=== PATIENT | male | born 1935 | race Caucasian/White ===

== ENCOUNTER → 2020-09-29 12:01 | Outpatient (BNVA) | payer MEDICARE, OTHER, SELFPAY | PROVIDERS: PCP Internal Medicine; Visit Provider Internal Medicine | DX: Z76.89 Persons encountering health services in other specified circumstances (principal) ==

== ENCOUNTER → 2020-10-18 11:52 | Outpatient (BNVA) | payer MEDICARE, OTHER, SELFPAY | PROVIDERS: PCP Internal Medicine; Visit Provider Internal Medicine | DX: Z13.89 Encounter for screening for other disorder (principal) | CPT/HCPCS: Q3014 ==

== ENCOUNTER → 2020-10-25 15:54 | Outpatient (BNVA) | payer MEDICARE, OTHER, SELFPAY | PROVIDERS: PCP Internal Medicine; Visit Provider Internal Medicine | DX: Z76.89 Persons encountering health services in other specified circumstances (principal) ==

== ENCOUNTER → 2020-11-01 15:34 | Outpatient (BNVA) | payer MEDICARE, OTHER, SELFPAY | PROVIDERS: Visit Provider Internal Medicine | DX: I48.20 Chronic atrial fibrillation, unspecified (principal); Z51.81 Encounter for therapeutic drug level monitoring; Z79.01 Long term (current) use of anticoagulants | CPT/HCPCS: 99211 ==

== ENCOUNTER → 2020-11-15 11:32 | Outpatient (BNVA) | payer MEDICARE, OTHER, SELFPAY | PROVIDERS: PCP Internal Medicine; Visit Provider Urology | DX: N40.1 Benign prostatic hyperplasia with lower urinary tract symptoms (principal); R35.0 Frequency of micturition; R33.8 Other retention of urine; R35.1 Nocturia; Z79.899 Other long term (current) drug therapy | CPT/HCPCS: Q3014 ==

== ENCOUNTER → 2020-12-02 13:25 | Outpatient (BNVA) | payer MEDICARE, OTHER, SELFPAY | PROVIDERS: PCP Internal Medicine; Visit Provider Internal Medicine | DX: I48.20 Chronic atrial fibrillation, unspecified (principal); Z79.01 Long term (current) use of anticoagulants; Z51.81 Encounter for therapeutic drug level monitoring | CPT/HCPCS: 85610 ==

== ENCOUNTER → 2020-12-30 13:03 | Outpatient (BNVA) | payer MEDICARE, OTHER, SELFPAY | PROVIDERS: PCP Internal Medicine; Visit Provider Internal Medicine | DX: I48.20 Chronic atrial fibrillation, unspecified (principal); Z51.81 Encounter for therapeutic drug level monitoring; Z79.01 Long term (current) use of anticoagulants | CPT/HCPCS: 85610; 99211 ==

== ENCOUNTER → 2021-01-27 12:15 | Outpatient (BNVA) | payer MEDICARE, OTHER, SELFPAY | PROVIDERS: PCP Internal Medicine; Visit Provider Internal Medicine | DX: I48.20 Chronic atrial fibrillation, unspecified (principal); Z51.81 Encounter for therapeutic drug level monitoring; Z79.01 Long term (current) use of anticoagulants | CPT/HCPCS: 85610; 99211 ==

== ENCOUNTER → 2021-02-17 13:05 | Outpatient (BNVA) | payer MEDICARE, OTHER, SELFPAY | PROVIDERS: PCP Internal Medicine; Visit Provider Internal Medicine | DX: I48.20 Chronic atrial fibrillation, unspecified (principal); Z51.81 Encounter for therapeutic drug level monitoring; Z79.01 Long term (current) use of anticoagulants | CPT/HCPCS: 85610; 99211 ==

== ENCOUNTER → 2021-03-17 13:06 | Outpatient (BNVA) | payer MEDICARE, OTHER, SELFPAY | PROVIDERS: PCP Internal Medicine; Visit Provider Internal Medicine | DX: I48.20 Chronic atrial fibrillation, unspecified (principal); Z51.81 Encounter for therapeutic drug level monitoring; Z79.01 Long term (current) use of anticoagulants | CPT/HCPCS: 85610; 99211 ==

== ENCOUNTER → 2021-04-07 10:28 | Outpatient (REF) | payer MEDICARE, OTHER, SELFPAY ==
--- NOTE | 2021-04-07 10:35 | CA_ITS ---
Transthoracic Echocardiogram Patient (Last, First, Middle): Tushar Tiwari F Gender: Male Date of : 1935 Age: 86 Procedure Date: 04/07/2021 Procedure Type: Transthoracic Echocardiogram Location: OP Height: 193.04 cm Weight: 95.26 kg BSA: 2.26 m2 Heart Rate: bpm BP: 130 / 70 mmHg Thaw Shed Heater Tender: FANNY Martell MD: Adrian Hobbs MD Information Technology Administrator: Larry Lebron MD Symptoms: I35.0 - Nonrheumatic aortic (valve) stenosis Study Quality: Fair ECG Rhythm: Sinus Conclusions: - 1. Normal LV systolic function with LVEF of 55-60% with restrictive filling 2. Severely dilated left atrium 3. Severe aortic stenosis with mean gradient of 41 mm Hg 4. At least moderate mitral regurgitation 5. Moderately elevated right ventricular systolic pressure 6. No pericardial effusion Findings Left Ventricle Normal left ventricular size, thickness, and systolic function. The visually estimated ejection fraction is between 55-60%. Spectral Doppler is indicative of a restrictive filling pattern. Elevated left ventricular end diastolic pressure. Right Ventricle Mildly increased right ventricular cavity size. There is normal right ventricular systolic function. There is a pacemaker wire seen in the right ventricle. Atria The left atrium is severely dilated. There is no evidence of interatrial shunt. The right atrium is moderately dilated. Aortic Valve There is severe calcification of the aortic valve. There is severe thickening of the aortic valve with reduced excursion. There is severe aortic valve stenosis. The peak aortic gradient is 74 mmHg.The mean gradient is 41 mmHg. The aortic valve area is 0.86 cm2. There is no aortic valve regurgitation. Mitral Valve There is mild anterior and severe posterior mitral leaflet thickening. There is severe mitral annular calcification. There is moderate mitral valve regurgitation. There is no mitral valve stenosis. Pulmonic Valve The pulmonic valve was not well visualized. Tricuspid Valve Likely normal tricuspid valve structure and function. There is mild tricuspid valve regurgitation. Mildly elevated right atrial pressure. Moderate pulmonary hypertension is present. Great Vessels All visible segments of the aorta are normal in size. The pulmonary artery was not well visualized. Venous The inferior vena cava is mildly dilated and collapses less than 50% with inspiration. Pericardium/Pleural There is no evidence of pericardial effusion. Prior Study Comparison Changes noted compared to prior study dated: 05/25/2020. Aortic stenosis is severe. RV systolic pressure is increased Measurements 2D Linear Measurements IVSd: 1.14 0.6-0.9/0.6-1.0 cm LVIDd: 5.74 3.9-5.3/4.2-5.9 cm LVIDd Index: 2.54 2.4-3.2/2.2-3.1 cm/m2 LVIDs: 4.64 2.0-3.6 cm LVPWd: 0.93 0.7-1.1 cm Ao Root: 3.50 2.1-3.5 cm LA Diam: 5.70 2.7-3.8/3.0-4.0 cm LAIDs Index: 2.52 1.5-2.3 cm/m2 LV Mass: 426.36 67-162/88-224 g LV Mass Index: 188.65 43-95/49-115 g/m2 LVOT Diam: 2.20 3.0+(-)1.3 cm 2D Systolic Function EF 4C: 63.30 >55% EF 2C: 56.30 >55% EF BiP: 59.30 >55% Aortic Valve AoV Pk Ajith: 4.31 AoV Mn Ajith: 3.06 AoV VTI: 1.11 AoV Pk Grad: 74.00 Aov Mn Grad: 41.00 DILSHAD Cont.VTI: 0.86 AI Pk Ajith: 3.12 AI [place]: 2.14 LVOT LVOT Pk Ajith: 0.94 LVOT Mn Ajith: 0.59 LVOT VTI: 0.25 LVOT Pk Grad: 4.00 LVOT Mn Grad: 2.00 LVOT Diam: 2.20 LVOT Area: 3.80 Tricuspid Valve TR Pk Ajith: 3.22 TR Pk Grad: 41.00 RA Press: 8.00 RVSP: 49.00 Great Vessels Aorta Ao Root-2D: 3.50 2.0-3.7 cm Ao Asc: 3.50 2.1-3.4 cm Updated in Other Vendor System with Status of Final Larry Lebron MD electronically signed on 04/08/2021 12:11:05 PM with status of Final
== END ==
LOC: HO.CARD 10:28
PROVIDERS: Visit Provider Internal Medicine
DX: I35.0 Nonrheumatic aortic (valve) stenosis (principal)
CPT/HCPCS: 93306

== ENCOUNTER → 2021-04-14 12:59 | Outpatient (BNVA) | payer MEDICARE, OTHER, SELFPAY | PROVIDERS: PCP Internal Medicine; Visit Provider Internal Medicine | DX: I48.20 Chronic atrial fibrillation, unspecified (principal); Z51.81 Encounter for therapeutic drug level monitoring; Z79.01 Long term (current) use of anticoagulants | CPT/HCPCS: 85610; 99211 ==

== ENCOUNTER 2021-05-02 08:45 | Outpatient (REF) | payer MEDICARE, OTHER, SELFPAY ==
[2021-05-02 10:45] LABS: MANUAL DIFF FLAG NO
[2021-05-02 10:55] LABS: Basophils Percent Auto 0.6 % (0-2); Eosinophils Absolute Auto 0.1 X10*3/uL (0.0-0.4); Eosinophils Percent Auto 2.1 % (0-4); Hematocrit 37.1 % (42-52); Hemoglobin 11.7 g/dl (14.0-18.0); Imm Gran Abs Auto 0.02 X10*3/uL (0.00-0.03); Imm Gran Pct Auto 0.4 % (0.0-0.4); Immature Retic Fraction 6.8 % (2.3-13.4); Lymphocytes Absolute Auto 0.8 X10*3/uL (1.2-4.9); Lymphocytes Percent Auto 16.6 % (20-40); Mean Corpuscular HGB Conc 31.5 g/dl (31.0-36.0); Mean Corpuscular Hemoglobin 31.8 pg (27.0-33.0); Mean Corpuscular Volume 100.8 fL (80-98); Mean Platelet Volume 11.3 fL (9.4-12.4); Monocytes Absolute Auto 0.5 X10*3/uL (0.1-1.2); Monocytes Percent Auto 9.4 % (2-11); Neutrophils Absolute Auto 3.5 X10*3/uL (2.0-8.3); Neutrophils Percent Auto 70.9 % (45-73); Platelet Count 151 X10*3/uL (160-400); Red Blood Count 3.68 X10*6/uL (4.60-5.80); Red Cell Distribution Width 13.1 % (11.0-16.0); Retic HGB Equivalent 34.8 pg (30.0-35.0); Reticulocyte Percent 1.1 % (0.5-1.8); Reticulocytes Absolute 0.042 X10*6/uL (0.026-0.095); White Blood Count 4.9 X10*3/uL (4.8-10.8)
[2021-05-02 11:03] LABS: Estimated Average Glucose 91 mg/dL; Hemoglobin A1c % 4.8 %
[2021-05-02 11:25] LABS: Alanine Aminotransferase 25 U/L (0-40); Albumin Level 3.4 g/dL (3.5-5.0); Alkaline Phosphatase 105 U/L (39-117); Anion Gap 11 (12-20); Aspartate Amino Transferase 29 U/L (5-37); Bilirubin Total 0.9 mg/dL (0.0-1.0); Blood Urea Nitrogen 20 mg/dL (9-16); Calcium 8.7 mg/dL (8.4-10.2); Carbon Dioxide 27 mmol/L (22-29); Chloride 107 mmol/L (96-108); Cholesterol 108 mg/dL; Estimated Glomerular Filt Rate > 60; Glucose Random 89 mg/dL (60-115); HDL Cholesterol 40 mg/dL; Iron 87 mcg/dL (45-160); LDL Cholesterol Calculated 54 mg/dl; Percent Iron Saturation 43 % (15-50); Potassium 4.1 mmol/L (3.3-5.1); Sodium 141 mmol/L (135-145); Total Iron Binding Capacity 201 mcg/dL (228-428); Total Protein 6.1 g/dL (6.5-8.0); Triglycerides 72 mg/dL; Unsaturated Iron Binding 114 ug/dL
[2021-05-02 11:34] LABS: Ferritin 482 ng/mL (20-250); Free T4 (Free Thyroxine) 1.37 ng/dL (0.71-1.85); Thyroid Stimulating Hormone 0.02 uIU/mL (0.32-4.0)
[2021-05-02 11:56] LABS: Folate 10.1 ng/mL (> or = 4.0); Vitamin B12 887 pg/mL (200-900)
== END 2021-05-02 08:46 | disposition home or self-care (01) ==
LOC: HO.LAB 08:45
PROVIDERS: PCP Internal Medicine; Visit Provider Internal Medicine
DX: R73.01 Impaired fasting glucose (principal); E03.9 Hypothyroidism, unspecified; I48.20 Chronic atrial fibrillation, unspecified; E78.00 Pure hypercholesterolemia, unspecified
CPT/HCPCS: 36415; 80053; 80061; 82607; 82728; 82746; 83036; 83540; 84439; 84443; 85025; 85045

== ENCOUNTER → 2021-05-12 13:01 | Outpatient (BNVA) | payer MEDICARE, OTHER, SELFPAY | PROVIDERS: PCP Internal Medicine; Visit Provider Internal Medicine | DX: I48.20 Chronic atrial fibrillation, unspecified (principal); Z51.81 Encounter for therapeutic drug level monitoring; Z79.01 Long term (current) use of anticoagulants | CPT/HCPCS: 85610; 99211 ==

== ENCOUNTER → 2021-05-16 12:41 | Outpatient (BNVA) | payer MEDICARE, OTHER, SELFPAY | PROVIDERS: PCP Internal Medicine; Referring Provider Internal Medicine; Visit Provider Internal Medicine | DX: I48.19 Other persistent atrial fibrillation (principal); I35.0 Nonrheumatic aortic (valve) stenosis; I27.20 Pulmonary hypertension, unspecified; I10 Essential (primary) hypertension; Z95.0 Presence of cardiac pacemaker | CPT/HCPCS: 93005; 99212 ==

== ENCOUNTER → 2021-06-09 13:04 | Outpatient (BNVA) | payer MEDICARE, OTHER, SELFPAY | PROVIDERS: PCP Internal Medicine; Visit Provider Internal Medicine | DX: I48.20 Chronic atrial fibrillation, unspecified (principal); Z51.81 Encounter for therapeutic drug level monitoring; Z79.01 Long term (current) use of anticoagulants | CPT/HCPCS: 85610; 99211 ==

== ENCOUNTER → 2021-07-12 13:54 | Outpatient (BNVA) | payer MEDICARE, OTHER, SELFPAY | PROVIDERS: PCP Internal Medicine; Visit Provider Internal Medicine | DX: I48.20 Chronic atrial fibrillation, unspecified (principal); Z51.81 Encounter for therapeutic drug level monitoring; Z79.01 Long term (current) use of anticoagulants | CPT/HCPCS: 85610; 99211 ==

== ENCOUNTER → 2021-08-09 11:22 | Outpatient (BNVA) | payer MEDICARE, OTHER, SELFPAY | PROVIDERS: PCP Internal Medicine; Visit Provider Internal Medicine | DX: I48.20 Chronic atrial fibrillation, unspecified (principal); Z51.81 Encounter for therapeutic drug level monitoring; Z79.01 Long term (current) use of anticoagulants | CPT/HCPCS: 85610; 99211 ==

== ENCOUNTER → 2021-09-06 11:25 | Outpatient (BNVA) | payer MEDICARE, OTHER, SELFPAY | PROVIDERS: PCP Internal Medicine; Visit Provider Internal Medicine | DX: I48.20 Chronic atrial fibrillation, unspecified (principal); Z51.81 Encounter for therapeutic drug level monitoring; Z79.01 Long term (current) use of anticoagulants | CPT/HCPCS: 85610; 99211 ==

== ENCOUNTER → 2021-09-08 13:00 | Outpatient (REF) | payer MEDICARE, OTHER, SELFPAY ==
--- NOTE | 2021-09-08 13:04 | CA_ITS ---
Transthoracic Echocardiogram Patient (Last, First, Middle): Tushar Tiwari F Gender: Male Date of : 1935 Age: 86 Procedure Date: 09/08/2021 Procedure Type: Transthoracic Echocardiogram Location: OP Height: 193.04 cm Weight: 93.44 kg BSA: 2.24 m2 Heart Rate: bpm BP: 130 / 70 mmHg Bran Mixer: DSG Referring MD: Adrian Hobbs MD Symptoms: I35.0 - Nonrheumatic aortic (valve) stenosis Study Quality: Fair ECG Rhythm: Ventriculary paced rhythm Conclusions: - The left ventricular systolic function is normal. The calculated ejection fraction is 63% by biplane method. - There is severe aortic valve stenosis. - There is moderate mitral annular calcification. There is mild mitral valve regurgitation. - Mild pulmonary hypertension is present. Findings Left Ventricle Moderately increased left ventricular cavity size. There is mildly increased left ventricular wall thickness. The left ventricular systolic function is normal. The calculated ejection fraction is 63% by biplane method. There is no evidence of regional wall motion abnormalities. Evidence suggests grade III (severe) diastolic dysfunction. LV peak GLS -12.5%. Right Ventricle Normal right ventricular cavity size and systolic function. There is a pacemaker wire seen in the right ventricle. Atria The left atrium is severely dilated. The right atrium is moderately dilated. Aortic Valve There is severe calcification of the aortic valve. There is severe aortic valve stenosis. The peak aortic velocity is 4.58 m/s with a calculated peak gradient of 84 mmHg. The mean gradient is 49 mmHg. The aortic valve area is 0.75 cm2. There is mild aortic valve regurgitation. Mitral Valve There is moderate mitral annular calcification. There is mild mitral valve regurgitation. There is no mitral valve stenosis. Pulmonic Valve The pulmonic valve was not well visualized. There is trace pulmonic valve regurgitation. Tricuspid Valve There is mild tricuspid valve regurgitation. The right ventricular systolic pressure is 40 mmHg. The pulmonary artery systolic pressure is normal. Mild pulmonary hypertension is present. Great Vessels The asc aorta is normal in size. Venous The inferior vena cava was not well visualized. Pericardium/Pleural There is no evidence of pericardial effusion. Prior Study Comparison Changes noted compared to prior study dated: 04/07/2021. Progression of aortic valve stenosis. Measurements 2D Linear Measurements IVSd: 1.17 0.6-0.9/0.6-1.0 cm LVIDd: 6.34 3.9-5.3/4.2-5.9 cm LVIDd Index: 2.83 2.4-3.2/2.2-3.1 cm/m2 LVIDs: 4.24 2.0-3.6 cm LVPWd: 1.05 0.7-1.1 cm LA Diam: 5.30 2.7-3.8/3.0-4.0 cm LAIDs Index: 2.37 1.5-2.3 cm/m2 LV Mass: 387.28 67-162/88-224 g LV Mass Index: 172.89 43-95/49-115 g/m2 LVOT Diam: 2.20 3.0+(-)1.3 cm 2D Systolic Function EF 4C: 61.70 >55% EF 2C: 62.60 >55% EF BiP: 62.80 >55% Mitral Valve MV Pk E: 1.53 MV PK A: 0.74 MV Decel Time: 305.00 E/A: 2.10 E'Lateral: 12.30 E'Medial: 6.31 E/E' Med: 24.20 E/E' Lat: 12.40 PHT: 89.00 MVA PHT: 2.47 Decel [place]: 5.02 Aortic Valve AoV Pk Ajith: 4.58 AoV Mn Ajith: 3.28 AoV VTI: 1.15 AoV Pk Grad: 84.00 Aov Mn Grad: 49.00 DILSHAD Cont.VTI: 0.75 AI Pk Ajith: 2.96 AI [place]: 1.56 LVOT LVOT Pk Ajith: 1.02 LVOT Mn Ajith: 0.67 LVOT VTI: 0.23 LVOT Pk Grad: 4.00 LVOT Mn Grad: 2.00 LVOT Diam: 2.20 LVOT Area: 3.80 Diastolic Function MV Pk E: 1.53 MV Pk A: 0.74 E/A: 2.10 E'Medial: 6.31 E/E' Med: 24.20 E' Laterial: 12.30 E/E' Lat: 12.40 Right Ventricle TAPSE (mm): 2.14 Tricuspid Valve TR Pk Ajith: 2.95 TR Pk Grad: 35.00 RVSP: 40.00 Great Vessels Aorta Ao Asc: 3.70 2.1-3.4 cm Updated in Other Vendor System with Status of Final Adrian Hobbs MD electronically signed on 09/09/2021 10:44:27 AM with status of Final
== END ==
LOC: HO.CARD 13:00
PROVIDERS: PCP Internal Medicine; Visit Provider Internal Medicine
DX: I35.0 Nonrheumatic aortic (valve) stenosis (principal)
CPT/HCPCS: 93306; 93356

== ENCOUNTER → 2021-09-26 12:59 | Outpatient (BNVA) | payer MEDICARE, OTHER, SELFPAY | PROVIDERS: PCP Internal Medicine; Referring Provider Internal Medicine; Visit Provider Internal Medicine | DX: I48.19 Other persistent atrial fibrillation (principal); I35.0 Nonrheumatic aortic (valve) stenosis; I27.20 Pulmonary hypertension, unspecified; I10 Essential (primary) hypertension; Z95.0 Presence of cardiac pacemaker | CPT/HCPCS: 99212 ==

== ENCOUNTER 2021-10-04 12:48 | Outpatient (REF) | payer MEDICARE, OTHER, SELFPAY ==
[2021-10-04 13:32] LABS: MANUAL DIFF FLAG NO
[2021-10-04 13:39] LABS: Basophils Percent Auto 0.5 % (0-2); Eosinophils Absolute Auto 0.1 X10*3/uL (0.0-0.4); Eosinophils Percent Auto 1.7 % (0-4); Hematocrit 37.1 % (42.0-52.0); Hemoglobin 11.7 g/dl (14.0-18.0); Imm Gran Abs Auto 0.02 X10*3/uL (0.00-0.03); Imm Gran Pct Auto 0.3 % (0.0-0.4); Immature Retic Fraction 5.5 % (2.3-13.4); Lymphocytes Absolute Auto 1.2 X10*3/uL (1.2-4.9); Lymphocytes Percent Auto 19.2 % (20-40); Mean Corpuscular HGB Conc 31.5 g/dl (31.0-36.0); Mean Corpuscular Hemoglobin 32.2 pg (27.0-33.0); Mean Corpuscular Volume 102.2 fL (80.0-98.0); Mean Platelet Volume 10.6 fL (9.4-12.4); Monocytes Absolute Auto 0.7 X10*3/uL (0.1-1.2); Monocytes Percent Auto 10.9 % (2-11); Neutrophils Absolute Auto 4.3 x10*3/uL (2.0-8.3); Neutrophils Percent Auto 67.4 % (45-73); Platelet Count 190 X10*3/uL (160-400); Red Blood Count 3.63 X10*6/uL (4.60-5.80); Red Cell Distribution Width 13.2 % (11.0-16.0); Reticulocyte Percent 1.4 % (0.5-1.8); White Blood Count 6.4 X10*3/uL (4.8-10.8)
[2021-10-04 14:03] LABS: Iron 96 mcg/dL (45-160); Percent Iron Saturation 44 % (15-50); Total Iron Binding Capacity 216 mcg/dL (228-428); Unsaturated Iron Binding 120 ug/dL
[2021-10-04 14:24] LABS: Ferritin 405 ng/mL (20-250); Free T4 (Free Thyroxine) 1.55 ng/dL (0.71-1.85); Thyroid Stimulating Hormone 0.11 uIU/mL (0.32-4.0)
== END 2021-10-04 12:49 | disposition home or self-care (01) ==
LOC: HO.LAB 12:48
PROVIDERS: Visit Provider Internal Medicine
DX: D64.9 Anemia, unspecified (principal); E03.9 Hypothyroidism, unspecified
CPT/HCPCS: 36415; 82728; 83540; 84439; 84443; 85025; 85045; 85610

== ENCOUNTER 2021-10-16 01:28 | Emergency (ER) | payer MEDICARE, OTHER, SELFPAY ==
[2021-10-16 01:36] VITALS: BP 111/67; BP 130/72; PULSE 60; PULSE 70; RESP 18; TEMP 36.4; O2SAT 96; O2SAT 98; BMI 25.2
--- NOTE | 2021-10-16 01:42 | ED_ITS ---
History of Present Illness General Chief Complaint: Epistaxis Stated Complaint: epistaxis(on warfarin) Time Seen by Provider: 10/16/21 02:09 Source: patient and EMS Mode of arrival: EMS Limitations: no limitations History of Present Illness HPI Narrative: 86-year-old male presents via EMS for a nose bleed. States that he was scratching at his nose, it started bleeding states that he has been bleeding for about an hour. He is taking warfarin. Location: Yes left naris Onset/current episode: Yes hour(s) (1) Duration: Yes constant Context: Yes digital trauma Treatment prior to arrival: Yes stuff nose with tissue Related Data Home Medications Medication Instructions Recorded Confirmed cholecalciferol (vitamin D3) 25 25 mcg PO DAILY 09/27/20 09/26/21 mcg (1,000 unit) tablet lisinopril 20 mg tablet 20 mg PO DAILY 09/27/20 09/26/21 metoprolol succinate 50 mg 50 mg PO DAILY 09/27/20 09/26/21 tablet,extended release 24 hr simvastatin 20 mg tablet 20 mg PO DAILY 09/27/20 09/26/21 levothyroxine 200 mcg tablet 200 mcg PO .COMPLEX 05/02/21 09/26/21 Previous Rx's Medication Instructions Recorded albuterol sulfate 90 mcg/actuation 2 puff PO Q4H PRN #8.5 g 09/27/20 aerosol inhaler warfarin 4 mg tablet 4 mg PO .COMPLEX #90 tab 12/19/20 terazosin 10 mg capsule 10 mg PO DAILY 90 Days #90 cap 05/19/21 levothyroxine 175 mcg capsule 175 mcg PO DAILY 30 Days #30 cap 10/04/21 Allergies Allergy/AdvReac Type Severity Reaction Status Date / Time No Known Allergies Allergy Verified 10/16/21 01:41 Review of Systems Review of Systems: Constitutional: No Fever, No Chills ENT/Mouth: Positive epistaxis,No Ear Pain, No Hoarseness, No sore throat Eyes: No Eye Pain, No Swelling, No Redness, No Foreign Body Cardiovascular: No Chest Pain, No SOB Respiratory: No Cough, No Dyspnea Gastrointestinal: No Nausea, No Vomiting, No Diarrhea, No abdominal Pain Genitourinary: No Dysuria, No Hematuria Musculoskeletal: no joint pain, No Myalgias, No Joint Swelling Skin: No Skin lacerations, No rash Neuro: No Weakness, No Numbness, No Paresthesias, No Loss of Consciousness, No Dizziness, No Headache Psych: No Anxiety/Panic, No Depression Heme/Lymph: no easy bruising, no Lymphadenopathy Endocrine: No Polyuria, No Polydipsia Yes all other systems are reviewed and are negative [facility] Past Medical History Attestation statement: The following information was validated with the patient. Source: old records reviewed Medical History Bilateral inguinal hernia BPH (benign prostatic hyperplasia) Chronic atrial fibrillation COPD (chronic obstructive pulmonary disease) History of CVA (cerebrovascular accident) Hypercholesterolemia Hypertension Hypothyroid Impaired fasting glucose Non-rheumatic aortic stenosis Normal pressure hydrocephalus Peripheral vascular disease Pulmonary nodule Renal calculi Right femoral fracture Right humeral fracture Surgical History Back pain with history of spinal surgery H/O laminectomy History of hip replacement History of inguinal hernia repair History of open reduction and internal fixation (ORIF) procedure History of thyroidectomy, subtotal History of vertebroplasty S/P BODY REPAIRER shunt Status post surgical removal of malignant neoplasm of skin Family History Family History Father Acute CVA (cerebrovascular accident) Cerebral hemorrhage Mother Acute CVA (cerebrovascular accident) Son Hypertension Sister Lung cancer Brother Alive and well Social History Social History Housing: House Alcohol intake: former Patient Tobacco Use Status: Former Tobacco user Quit Date: 10+ years Tobacco use type: Cigarette Second Hand Smoke Exposure: No service: Yes Current occupational status: retired Physical Exam Vital Signs: Vital Signs: Last Vital Signs Temp 97.6 F 10/16/21 01:36 Pulse 60 10/16/21 01:36 Resp 18 10/16/21 01:36 BP 111/67 10/16/21 01:36 Pulse Ox 96 10/16/21 01:36 Body Mass Index 25.2 Appearance: Alert. Oriented X3. No acute distress. Eyes: Pupils equal, round and reactive to light. ENT: Pharynx normal. scratch noted to the anterior left Septum. No bleeding noted this time. Neck: Normal inspection. Neck supple. CVS: Normal heart rate and rhythm. Pulses normal. Respiratory: No respiratory distress. Breath sounds normal. Abdomen: Soft and nontender. Skin: Skin warm and dry. Normal skin color. Normal skin turgor. Extremities: Plus four pitting edema Per baseline. Neuro: No motor deficit. No sensory deficit. cranial nerves 2-12 intact. Course Course Course Narrative: 86-year-old male presents with epistaxis secondary to digital trauma. Scratch noted on the left septum that is no longer bleeding. Two squirts of Afrin applied. Will monitor for approximately 30 minutes. 2:06 a.m. no further bleeding noted. Patient's grandson is at bedside and will bring patient home. Patient verbalized understanding of and agrees to plan of care to discharge to home. no further action required. MDM - Epistaxis MDM Narrative Medical decision making narrative: Digital trauma Differential Diagnosis Differential diagnosis: Likely anterior epistaxis Medical Records Attestation: I reviewed the patient's medical records. Discharge Plan Discharge Clinical Impression: Current use of anticoagulant therapy, Acute anterior epistaxis Patient Disposition: Home, Self-Care Instructions: Nosebleed (ED), Blood Thinners (ED) Additional Instructions: you were evaluated for a nose bleed that resolved prior to your arrival. Please follow-up with primary care physician. Continue all medications as previously prescribed. Thank you for choosing this emergency department for evaluation. Please follow-up with primary care physician as needed. Return to the emergency department for any new, concerning, or worsening symptoms. Prescriptions: No Action warfarin 4 mg tablet 4 mg PO .COMPLEX Qty: 90 RF: 3 levothyroxine 200 mcg tablet 200 mcg PO .COMPLEX RF: 0 terazosin 10 mg capsule 10 mg PO DAILY 90 Days Qty: 90 RF: 1 levothyroxine 175 mcg capsule 175 mcg PO DAILY 30 Days Qty: 30 RF: 2 lisinopril 20 mg tablet 20 mg PO DAILY RF: 0 simvastatin 20 mg tablet 20 mg PO DAILY RF: 0 cholecalciferol (vitamin D3) 25 mcg (1,000 unit) tablet 25 mcg PO DAILY RF: 0 metoprolol succinate 50 mg tablet extended release 24 hr 50 mg PO DAILY RF: 0 albuterol sulfate 90 mcg/actuation HFA aerosol inhaler 2 puff PO Q4H PRN (Reason: bronchospasm) Qty: 8.5 RF: 0
[2021-10-16] MEDS: Oxymetazoline HCl 0.05 % Nasal 15 ML SPRAY 2 SPRAY NOSTRIL-B (01:45)
== END 2021-10-16 02:33 | disposition home or self-care (01) ==
PROVIDERS: Emergency Provider Student in an Organized Health Care Education/Training Program; PCP Internal Medicine
DX: R04.0 Epistaxis (principal); F17.210 Nicotine dependence, cigarettes, uncomplicated; Z71.6 Tobacco abuse counseling; Z79.899 Other long term (current) drug therapy; Z79.01 Long term (current) use of anticoagulants
CPT/HCPCS: 99283

== ENCOUNTER → 2021-11-03 13:53 | Outpatient (BNVA) | payer MEDICARE, OTHER, SELFPAY | PROVIDERS: PCP Internal Medicine; Visit Provider Internal Medicine | DX: I48.20 Chronic atrial fibrillation, unspecified (principal); Z51.81 Encounter for therapeutic drug level monitoring; Z79.01 Long term (current) use of anticoagulants | CPT/HCPCS: 85610; 99211 ==

== ENCOUNTER → 2021-11-16 14:19 | Outpatient (BNVA) | payer MEDICARE, OTHER, SELFPAY | PROVIDERS: PCP Internal Medicine; Visit Provider Internal Medicine | DX: I48.20 Chronic atrial fibrillation, unspecified (principal); Z51.81 Encounter for therapeutic drug level monitoring; Z79.01 Long term (current) use of anticoagulants | CPT/HCPCS: 85610; 99211 ==

== ENCOUNTER 2021-12-08 13:04 | Outpatient (REF) | payer MEDICARE, OTHER, SELFPAY ==
[2021-12-08 13:45] LABS: Prothrombin Time 83.3 SEC (9.9-13.0)
== END 2021-12-08 13:05 | disposition home or self-care (01) ==
LOC: HO.LAB 13:04
PROVIDERS: PCP Internal Medicine; Visit Provider Internal Medicine
DX: I48.20 Chronic atrial fibrillation, unspecified (principal); Z51.81 Encounter for therapeutic drug level monitoring; Z79.01 Long term (current) use of anticoagulants
CPT/HCPCS: 36415; 85610; 99212

== ENCOUNTER → 2021-12-11 13:05 | Outpatient (BNVA) | payer MEDICARE, OTHER, SELFPAY | PROVIDERS: PCP Internal Medicine; Visit Provider Internal Medicine | DX: I48.20 Chronic atrial fibrillation, unspecified (principal); Z51.81 Encounter for therapeutic drug level monitoring; Z79.01 Long term (current) use of anticoagulants | CPT/HCPCS: 85610; 99211 ==

== ENCOUNTER → 2021-12-15 13:06 | Outpatient (BNVA) | payer MEDICARE, OTHER, SELFPAY | PROVIDERS: PCP Internal Medicine; Visit Provider Internal Medicine | DX: I48.20 Chronic atrial fibrillation, unspecified (principal); Z51.81 Encounter for therapeutic drug level monitoring; Z79.01 Long term (current) use of anticoagulants | CPT/HCPCS: 85610; 99211 ==

== ENCOUNTER → 2021-12-20 13:13 | Outpatient (BNVA) | payer MEDICARE, OTHER, SELFPAY | PROVIDERS: PCP Internal Medicine; Visit Provider Internal Medicine | DX: I48.20 Chronic atrial fibrillation, unspecified (principal); Z51.81 Encounter for therapeutic drug level monitoring; Z79.01 Long term (current) use of anticoagulants | CPT/HCPCS: 85610; 99211 ==

== ENCOUNTER → 2021-12-25 13:13 | Outpatient (REF) | payer MEDICARE, OTHER, SELFPAY ==
--- NOTE | 2021-12-25 13:16 | CA_ITS ---
Transthoracic Echocardiogram Patient (Last, First, Middle): Tushar Tiwari F Gender: Male Date of : 1935 Age: 86 Procedure Date: 12/25/2021 Procedure Type: Transthoracic Echocardiogram Location: OP Height: 193.04 cm Weight: 93.44 kg BSA: 2.24 m2 Heart Rate: bpm BP: 130 / 76 mmHg Computer Peripheral Equipment Operator: [id number] Referring MD: Adrian Hobbs MD Symptoms: I35.0 - Nonrheumatic aortic (valve) stenosis Study Quality: Fair ECG Rhythm: Ventriculary paced rhythm Conclusions: - The left ventricular systolic function is normal. The visually estimated ejection fraction is between 60-65%. - Severe biatrial enlargement. - There is severe aortic valve stenosis. - There is moderate mitral valve regurgitation. Findings Left Ventricle Normal left ventricular cavity size. There is mildly increased left ventricular wall thickness. The left ventricular systolic function is normal. The visually estimated ejection fraction is between 60-65%. There is no evidence of regional wall motion abnormalities. Diastolic function is indeterminate on the basis of available data. Right Ventricle There is a pacemaker wire seen in the right ventricle. Atria Severe biatrial enlargement. Aortic Valve There is severe calcification of the aortic valve. There is severe aortic valve stenosis. The peak aortic velocity is 4.75 m/s with a calculated peak gradient of 90 mmHg. The mean gradient is 53 mmHg. The aortic valve area is 0.73 cm2. There is mild aortic valve regurgitation. Mitral Valve There is severe mitral annular calcification. There is moderate mitral valve regurgitation. There is no mitral valve stenosis. Pulmonic Valve The pulmonic valve was not well visualized. Tricuspid Valve Normal tricuspid valve structure. There is mild tricuspid valve regurgitation. The right ventricular systolic pressure is 48 mmHg. Mild pulmonary hypertension is present. Great Vessels The aortic annulus, sinuses of valsalva, and asc aorta are normal in size. Venous The inferior vena cava is dilated and collapses less than 50% with inspiration. Pericardium/Pleural There is no evidence of pericardial effusion. Prior Study Comparison Changes noted compared to prior study dated: 09/08/2021. Increase in aortic valve gradients. Measurements 2D Linear Measurements IVSd: 1.26 0.6-0.9/0.6-1.0 cm LVIDd: 6.03 3.9-5.3/4.2-5.9 cm LVIDd Index: 2.69 2.4-3.2/2.2-3.1 cm/m2 LVIDs: 4.02 2.0-3.6 cm LVPWd: 1.23 0.7-1.1 cm Ao Root: 3.60 2.1-3.5 cm LA Diam: 6.20 2.7-3.8/3.0-4.0 cm LAIDs Index: 2.77 1.5-2.3 cm/m2 LV Mass: 415.18 67-162/88-224 g LV Mass Index: 185.35 43-95/49-115 g/m2 LVOT Diam: 2.10 3.0+(-)1.3 cm 2D Systolic Function EF 4C: 79.80 >55% EF 2C: 58.80 >55% EF BiP: 70.80 >55% Mitral Valve MV Pk E: 1.32 MV PK A: 0.69 MV Decel Time: 156.00 E/A: 1.90 E'Lateral: 11.30 E'Medial: 5.22 E/E' Med: 25.30 E/E' Lat: 11.70 PHT: 46.00 MVA PHT: 4.78 Decel [place]: 8.44 Aortic Valve AoV Pk Ajith: 4.75 AoV Mn Ajith: 3.38 AoV VTI: 1.23 AoV Pk Grad: 90.00 Aov Mn Grad: 53.00 DILSHAD Cont.VTI: 0.73 AI Pk Ajith: 3.53 AI [place]: 1.65 LVOT LVOT Pk Ajith: 0.95 LVOT Mn Ajith: 0.64 LVOT VTI: 0.26 LVOT Pk Grad: 4.00 LVOT Mn Grad: 2.00 LVOT Diam: 2.10 LVOT Area: 3.46 Diastolic Function MV Pk E: 1.32 MV Pk A: 0.69 E/A: 1.90 E'Medial: 5.22 E/E' Med: 25.30 E' Laterial: 11.30 E/E' Lat: 11.70 Right Ventricle TAPSE (mm): 1.89 TVS' Ajith: 13.60 Tricuspid Valve TR Pk Ajith: 2.88 TR Pk Grad: 33.00 RA Press: 15.00 RVSP: 48.00 Great Vessels Aorta Ao Root-2D: 3.60 2.0-3.7 cm Ao Asc: 3.70 2.1-3.4 cm Updated in Other Vendor System with Status of Final Adrian Hobbs MD electronically signed on 12/25/2021 3:57:04 PM with status of Final
== END ==
LOC: HO.CARD 13:13
PROVIDERS: PCP Internal Medicine; Visit Provider Internal Medicine
DX: I35.0 Nonrheumatic aortic (valve) stenosis (principal); I48.20 Chronic atrial fibrillation, unspecified; Z51.81 Encounter for therapeutic drug level monitoring; Z79.01 Long term (current) use of anticoagulants
CPT/HCPCS: 85610; 93306; 99211

== ENCOUNTER → 2022-01-01 13:05 | Outpatient (BNVA) | payer MEDICARE, OTHER, SELFPAY | PROVIDERS: PCP Internal Medicine; Visit Provider Internal Medicine | DX: I48.20 Chronic atrial fibrillation, unspecified (principal); Z51.81 Encounter for therapeutic drug level monitoring; Z79.01 Long term (current) use of anticoagulants | CPT/HCPCS: 85610; 99211 ==

== ENCOUNTER → 2022-01-02 13:07 | Outpatient (BNVA) | payer MEDICARE, OTHER, SELFPAY | PROVIDERS: PCP Internal Medicine; Referring Provider Internal Medicine; Visit Provider Internal Medicine | DX: I35.0 Nonrheumatic aortic (valve) stenosis (principal); I48.19 Other persistent atrial fibrillation; I27.20 Pulmonary hypertension, unspecified; I10 Essential (primary) hypertension; Z79.899 Other long term (current) drug therapy; Z95.0 Presence of cardiac pacemaker | CPT/HCPCS: 99212 ==

== ENCOUNTER → 2022-01-09 14:12 | Outpatient (BNVA) | payer MEDICARE, OTHER, SELFPAY | PROVIDERS: PCP Internal Medicine; Visit Provider Internal Medicine | DX: I48.20 Chronic atrial fibrillation, unspecified (principal); Z51.81 Encounter for therapeutic drug level monitoring; Z79.01 Long term (current) use of anticoagulants | CPT/HCPCS: 85610; 99211 ==

== ENCOUNTER 2022-01-29 11:36 | Outpatient (REF) | payer MEDICARE, OTHER, SELFPAY ==
[2022-01-29 12:37] LABS: Hematocrit 37.4 % (42.0-52.0); Hemoglobin 11.4 g/dl (14.0-18.0); Mean Corpuscular HGB Conc 30.5 g/dl (31.0-36.0); Mean Corpuscular Hemoglobin 31.3 pg (27.0-33.0); Mean Corpuscular Volume 102.7 fL (80.0-98.0); Mean Platelet Volume 10.8 fL (9.4-12.4); Platelet Count 213 X10*3/uL (160-400); Red Blood Count 3.64 X10*6/uL (4.60-5.80); Red Cell Distribution Width 13.8 % (11.0-16.0)
[2022-01-29 12:48] LABS: INTERNATIONAL NORM RATIO 1.6 (0.9-1.1); Prothrombin Time 17.8 SEC (9.9-13.0)
[2022-01-29 13:07] LABS: Anion Gap 8 (12-20); Blood Urea Nitrogen 18 mg/dL (9-16); Calcium 8.7 mg/dL (8.4-10.2); Carbon Dioxide 30 mmol/L (22-29); Chloride 104 mmol/L (96-108); Estimated Glomerular Filt Rate > 60; Glucose Random 122 mg/dL (60-115); Potassium 4.5 mmol/L (3.3-5.1); Sodium 137 mmol/L (135-145)
== END 2022-01-29 11:37 | disposition home or self-care (01) ==
LOC: HO.LAB 11:36
PROVIDERS: PCP Internal Medicine; Visit Provider Internal Medicine
DX: I48.20 Chronic atrial fibrillation, unspecified (principal); I35.0 Nonrheumatic aortic (valve) stenosis
CPT/HCPCS: 36415; 80048; 85027; 85610

== ENCOUNTER 2022-02-13 05:40 | Inpatient (IN) | payer MEDICARE, OTHER, SELFPAY ==
[2022-02-13] VITALS (17 sets, daily range): BP systolic 70–113; BP diastolic 34–60; PULSE 60–98; RESP 12–24; TEMP 36.6–36.7; O2SAT 91–97; BMI 24.3
--- NOTE | ~2022-02-13 | XR_ITS ---
EXAMINATION: XR CHEST CLINICAL INFORMATION: Shortness of breath COMPARISON: 06/04/2020 TECHNIQUE: Frontal view of the chest was obtained. FINDINGS: Single lead pacemaker stably position. A ventriculoperitoneal shunt catheter courses over the right hemithorax. There are patchy and hazy airspace opacities throughout the right lung. Diffuse bronchial wall thickening present. Mild cardiomegaly and pulmonary venous congestion. Mild interstitial edema. Trace bilateral pleural effusions. No pneumothorax. XR/XR chest 1V IMPRESSION: * Cardiomegaly and pulmonary venous congestion with interstitial edema * Multifocal airspace opacity throughout the right lung suspicious for pneumonia versus asymmetric pulmonary edema.
--- NOTE | 2022-02-13 05:44 | ED_ITS ---
HPI - SOB/Dyspnea General Chief Complaint: Dyspnea <Jameson Fajardo MD - Last Filed: 02/13/22 07:27> Stated Complaint: SOB <Jameson Fajardo MD - Last Filed: 02/13/22 07:27> Time Seen by Provider: 02/13/22 05:44 <Jameson Fajardo MD - Last Filed: 02/13/22 07:27> Source: EMS <Jameson Fajardo MD - Last Filed: 02/13/22 07:27> Mode of arrival: EMS <Jameson Fajardo MD - Last Filed: 02/13/22 07:27> Limitations: no limitations <Jameson Fajardo MD - Last Filed: 02/13/22 07:27> History of Present Illness HPI Narrative: Increasing shortness of breath, this is the worst he has had. The shortness of breath is the worse thath kushs ever had <Jameson Fajardo MD - Last Filed: 02/13/22 07:27> MD elicited complaint: shortness of breath <Jameson Fajardo MD - Last Filed: 02/13/22 07:27> Pertinent past history: congestive heart failure <Jameson Fajardo MD - Last Filed: 02/13/22 07:27> Onset (ago): hour(s) <Jameson Fajardo MD - Last Filed: 02/13/22 07:27> Timing: constant <Jameson Fajardo MD - Last Filed: 02/13/22 07:27> Severity: mild <Jameson Fajardo MD - Last Filed: 02/13/22 07:27> Known history of: congestive heart failure <Jameson Fajardo MD - Last Filed: 02/13/22 07:27> Associated symptoms: denies other symptoms and other (lower edema) <Jameson Fajardo MD - Last Filed: 02/13/22 07:27> Treatment prior to arrival: oxygen <Jameson Fajardo MD - Last Filed: 02/13/22 07:27> Related Data Home Medications: Home Medications Medication Instructions Recorded Confirmed cholecalciferol (vitamin D3) 25 25 mcg PO DAILY 09/27/20 02/13/22 mcg (1,000 unit) tablet lisinopril 20 mg tablet 20 mg PO DAILY 09/27/20 02/13/22 metoprolol succinate 50 mg 50 mg PO BEDTIME 09/27/20 02/13/22 tablet,extended release 24 hr simvastatin 20 mg tablet 20 mg PO BEDTIME 09/27/20 02/13/22 levothyroxine 200 mcg tablet 200 mcg PO .COMPLEX 05/02/21 02/13/22 cyanocobalamin (vitamin B-12) 1,000 mcg PO DAILY 02/13/22 02/13/22 1,000 mcg tablet Previous Rx's Medication Instructions Recorded albuterol sulfate 90 mcg/actuation 2 puff PO Q4H PRN #8.5 g 09/27/20 aerosol inhaler apixaban 5 mg tablet (Eliquis) 5 mg PO BID #180 tab 01/02/22 sennosides 8.6 mg-docusate sodium 1 tab-cap PO BID PRN 90 Days #90 01/04/22 50 mg capsule (Senna Plus) cap <Jameson Fajardo MD - Last Filed: 02/13/22 07:27> Allergies/Adverse Reactions: Allergies Allergy/AdvReac Type Severity Reaction Status Date / Time No Known Allergies Allergy Verified 01/04/22 11:01 <Jameson Fajardo MD - Last Filed: 02/13/22 07:27> Review of Systems Constitutional: Constitutional: Reports no additional constitutional complaints <Jameson Fajardo MD - Last Filed: 02/13/22 07:27> Eyes: Eyes: Reports no additional eye complaints <Jameson Fajardo MD - Last Filed: 02/13/22 07:27> ENT: Denies dizziness <Jameson Fajardo MD - Last Filed: 02/13/22 07:27> Cardiovascular: Cardiovascular: Reports no additional cardiovascular complaints <Jameson Fajardo MD - Last Filed: 02/13/22 07:27> Respiratory: Respiratory: Reports as per HPI <Jameson Fajardo MD - Last Filed: 02/13/22 07:27> Gastrointestinal: Gastrointestinal: Reports no additional gastrointestinal complaints <Jameson Fajardo MD - Last Filed: 02/13/22 07:27> Musculoskeletal: Musculoskeletal: Reports no additional musculoskeletal complaints <Jameson Fajardo MD - Last Filed: 02/13/22 07:27> Integumentary/Breasts: Skin/Breast: Denies rash <Jameson Fajardo MD - Last Filed: 02/13/22 07:27> Neurologic: Reports system reviewed and no additional complaints, except as documented, Denies dizziness and Denies Sensory deficit (Neuro) <Jameson Fajardo MD - Last Filed: 02/13/22 07:27> Psychiatric: Psychiatric: Denies anxiety <Jameson Fajardo MD - Last Filed: 02/13/22 07:27> [facility] Past Medical History Medical History: Medical History Bilateral inguinal hernia BPH (benign prostatic hyperplasia) Chronic atrial fibrillation COPD (chronic obstructive pulmonary disease) History of CVA (cerebrovascular accident) Hypercholesterolemia Hypertension Hypothyroid Impaired fasting glucose Non-rheumatic aortic stenosis Normal pressure hydrocephalus Peripheral vascular disease Pulmonary nodule Renal calculi Right femoral fracture Right humeral fracture <Jameson Fajardo MD - Last Filed: 02/13/22 07:27> Surgical History: Surgical History Back pain with history of spinal surgery H/O laminectomy History of hip replacement History of inguinal hernia repair History of open reduction and internal fixation (ORIF) procedure History of thyroidectomy, subtotal History of vertebroplasty S/P [employer]/MONITOR shunt Status post surgical removal of malignant neoplasm of skin <Jameson Fajardo MD - Last Filed: 02/13/22 07:27> Family History Family History: Family History Father Acute CVA (cerebrovascular accident) Cerebral hemorrhage Mother Acute CVA (cerebrovascular accident) Son Hypertension Sister Lung cancer Brother Alive and well <Jameson Fajardo MD - Last Filed: 02/13/22 07:27> Social History Social History: Social History Housing: House Alcohol intake: never Patient Tobacco Use Status: Former Tobacco user Quit Date: 10+ years Tobacco use type: Cigarette e-Cigarette/Vaping Use: Never Used Second Hand Smoke Exposure: No Use of substances other than those prescribed or required for medical reasons: No Advance Directives: No Advance Directives Information Provided: No service: Yes Current occupational status: retired <Jameson Fajardo MD - Last Filed: 02/13/22 07:27> Physical Exam Vital Signs: Vital Signs: Last Vital Signs Temp 98.0 F 02/13/22 08:51 Pulse 60 02/13/22 08:51 Resp 21 H 02/13/22 08:51 BP 97/53 L 02/13/22 08:51 Pulse Ox 93 02/13/22 08:51 Oxygen Flow Rate 2 02/13/22 05:55 BMI result Body Mass Index 24.3 <Jameson Fajardo MD - Last Filed: 02/13/22 07:27> Vital Signs: Last Vital Signs Temp 98.0 F 02/13/22 08:51 Pulse 60 02/13/22 08:51 Resp 21 H 02/13/22 08:51 BP 97/53 L 02/13/22 08:51 Pulse Ox 93 02/13/22 08:51 Oxygen Flow Rate 2 02/13/22 05:55 BMI result Body Mass Index 24.3 <Fariha Ramsey DO - Last Filed: 02/13/22 09:29> Const: Other: elderly male short of breath <Jameson Fajardo MD - Last Filed: 02/13/22 07:27> Nutritional Appearance: average body habitus <Jameson Fajardo MD - Last F iled: 02/13/22 07:27> Orientation/consciousness: oriented to person and patient oriented x3 <Jameson Fajardo MD - Last Filed: 02/13/22 07:27> Limitations: no limitations <Jameson Fajardo MD - Last Filed: 02/13/22 07:27> HEENT: Head: Yes normal to inspection <Jameson Fajardo MD - Last Filed: 02/13/22 07:27> Ears: external ears normal <Jameson Fajardo MD - Last Filed: 02/13/22 07:27> General nose exam: Normal external nose present <Jameson Fajardo MD - Last Filed: 02/13/22 07:27> Mouth: Normal oral and palatal mucosa present and oropharynx normal <Jameson Fajardo MD - Last Filed: 02/13/22 07:27> Throat: Yes posterior oropharynx normal <Jameson Fajardo MD - Last Filed: 02/13/22 07:27> Eyes: General: appearance normal, both eyes and all related structures <Jameson Fajardo MD - Last Filed: 02/13/22 07:27> Neck: Other: supple <Jameson Fajardo MD - Last Filed: 02/13/22 07:27> Neck: Yes normal visual inspection <Jameson Fajardo MD - Last Filed: 02/13/22 07:27> Chest: Chest palpation & inspection: normal inspection of the chest <Jameson Fajardo MD - Last Filed: 02/13/22 07:27> Resp: Other: Rhonchi with bilateral rales in the lower lungs <Jameson Fajardo MD - Last Filed: 02/13/22 07:27> Cardio: Other: 3/6 MAI <Jameson Fajardo MD - Last Filed: 02/13/22 07:27> Jugular venous distension: no JVD <Jameson Fajardo MD - Last Filed: 02/13/22 07:27> Rate: regular rate <Jameson Fajardo MD - Last Filed: 02/13/22 07:27> Rhythm: regular rhythm <Jameson Fajardo MD - Last Filed: 02/13/22 07:27> GI: Inspection: Yes normal to inspection <Jameson Fajardo MD - Last Filed: 02/13/22 07:27> Palpation (GI): Soft to palpation, nontender and No hepatosplenomegaly present <Jameson Fajardo MD - Last Filed: 02/13/22 07:27> Auscultation: normal bowel sounds <Jameson Fajardo MD - Last Filed: 02/13/22 07:27> : General: Yes no CVA tenderness <Jameson Fajardo MD - Last Filed: 02/13/22 07:27> Back/Spine/Pelvis: Back: no CVA tenderness <Jameson Fajardo MD - Last Filed: 02/13/22 07:27> Skin: General skin exam: no rashes or lesions noted <Jameson Fajardo MD - Last Filed: 02/13/22 07:27> Neuro: General: oriented to person and patient oriented x3 <Jameson Fajardo MD - Last Filed: 02/13/22 07:27> Cranial nerves: Yes CN's II-XII intact bilaterally <Jameson Fajardo MD - Last Filed: 02/13/22 07:27> Motor exam (neuro): 5/5 motor strength present throughout <Jameson Fajardo MD - Last Filed: 02/13/22 07:27> Sensory Exam: No Sensory deficit (Neuro) <Jameson Fajardo MD - Last Filed: 02/13/22 07:27> Extrem: Other: 2+ edema bilaterally <Jameson Fajardo MD - Last Filed: 02/13/22 07:27> Psych: Appearance: grossly normal <Jameson Fajardo MD - Last Filed: 02/13/22 07:27> Course Course Course Narrative: ADDENDUM: received sign out at 7am - BNP not very high, BP 100/50S - removed nitro paste, given appearance of CXR and new O2 requirements will add cultures, lactic acid and ceftriaxone/azithromycin, planned admit, repeat trop 9am. drop in blood pressures due to nitro and not infection or severe sepsis ECHO DEC 2021 Conclusions: - The left ventricular systolic function is normal.? The visually estimated ejection fraction is between 60-65%. ? - Severe biatrial enlargement. ? - There is severe aortic valve stenosis. ? - There is moderate mitral valve regurgitation.? <Fariha Ramsey DO - Last Filed: 02/13/22 09:29> Reevaluation(s) Reevaluation #1: Impression is CHF awaiting, CXR and BNP and labs <Jameson Fajardo MD - Last Filed: 02/13/22 07:27> Time: 06:46 <Jameson Fajardo MD - Last Filed: 02/13/22 07:27> Reevaluation #2: xray looked more consolidation on the right awaiting CBC and rest of labs signed out to Dr. Ramsey <Jameson Fajardo MD - Last Filed: 02/13/22 07:27> Time: 07:27 <Jameson Fajardo MD - Last Filed: 02/13/22 07:27> MDM - SOB/Dyspnea Lab Data Result diagrams: : 02/13/22 07:17 02/13/22 06:36 <Jameson Fajardo MD - Last Filed: 02/13/22 07:27> Labs: Lab Results 02/13/22 02/13/22 02/13/22 Range/Units 06:36 06:36 07:17 WBC 6.1 (4.8-10.8) X10*3/uL RBC 3.75 L (4.60-5.80) X10*6/uL Hgb 11.8 L (14.0-18.0) g/dl Hct 37.1 L (42.0-52.0) % MCV 98.9 H (80.0-98.0) fL MCH 31.5 (27.0-33.0) pg MCHC 31.8 (31.0-36.0) g/dl RDW 14.2 (11.0-16.0) % Plt Count 214 (160-400) X10*3/uL MPV 10.2 (9.4-12.4) fL Immature Gran % (Auto) 0.3 (0.0-0.4) % Neut % (Auto) 83.4 H (45-73) % Lymph % (Auto) 6.9 L (20-40) % [place] % (Auto) 8.8 (2-11) % Eos % (Auto) 0.3 (0-4) % Baso % (Auto) 0.3 (0-2) % Lymph # (Auto) 0.4 L (1.2-4.9) X10*3/uL [place] # (Auto) 0.5 (0.1-1.2) X10*3/uL Eos # (Auto) 0.0 (0.0-0.4) X10*3/uL Baso # (Auto) 0.0 (0.0-0.2) X10*3/uL Abs Immat Gran (auto) 0.02 (0.00-0.03) X10*3/uL Absolute Neuts (auto) 5.1 (2.0-8.3) x10*3/uL Absolute Nucleated RBC 0.000 (0.0-0.012) X10*3/uL Nucleated RBC % (auto) 0.0 (0.0-0.2) /100WBC Sodium 136 (135-145) mmol/L Potassium 4.6 (3.3-5.1) mmol/L Chloride 105 (96-108) mmol/L Carbon Dioxide 26 (22-29) mmol/L Anion Gap 10 L (12-20) BUN 30 H D (9-16) mg/dL Creatinine 0.85 (0.5-1.4) mg/dL Estim Creat Clear Calc 75.1 Estimated GFR > 60 Random Glucose 102 (60-115) mg/dL Lactic Acid (0.5-2.0) mmol/L Calcium 8.3 L (8.4-10.2) mg/dL Troponin I High Sens (<3.5-35.0) ng/L B-Natriuretic Peptide (<100) pg/mL COVID-19 (JUANA) Negative (Negative) COVID-19 Clin Com See Note 02/13/22 02/13/22 02/13/22 Range/Units 07:17 07:17 08:32 WBC (4.8-10.8) X10*3/uL RBC (4.60-5.80) X10*6/uL Hgb (14.0-18.0) g/dl Hct (42.0-52.0) % MCV (80.0-98.0) fL MCH (27.0-33.0) pg MCHC (31.0-36.0) g/dl RDW (11.0-16.0) % Plt Count (160-400) X10*3/uL MPV (9.4-12.4) fL Immature Gran % (Auto) (0.0-0.4) % Neut % (Auto) (45-73) % Lymph % (Auto) (20-40) % [place] % (Auto) (2-11) % Eos % (Auto) (0-4) % Baso % (Auto) (0-2) % Lymph # (Auto) (1.2-4.9) X10*3/uL [place] # (Auto) (0.1-1.2) X10*3/uL Eos # (Auto) (0.0-0.4) X10*3/uL Baso # (Auto) (0.0-0.2) X10*3/uL Abs Immat Gran (auto) (0.00-0.03) X10*3/uL Absolute Neuts (auto) (2.0-8.3) x10*3/uL Absolute Nucleated RBC (0.0-0.012) X10*3/uL Nucleated RBC % (auto) (0.0-0.2) /100WBC Sodium (135-145) mmol/L Potassium (3.3-5.1) mmol/L Chloride (96-108) mmol/L Carbon Dioxide (22-29) mmol/L Anion Gap (12-20) BUN (9-16) mg/dL Creatinine (0.5-1.4) mg/dL Estim Creat Clear Calc Estimated GFR Random Glucose (60-115) mg/dL Lactic Acid 1.8 (0.5-2.0) mmol/L Calcium (8.4-10.2) mg/dL Troponin I High Sens 13.0 (<3.5-35.0) ng/L B-Natriuretic Peptide 285 H (<100) pg/mL COVID-19 (JUANA) (Negative) COVID-19 Clin Com 02/13/22 Range/Units 08:50 WBC (4.8-10.8) X10*3/uL RBC (4.60-5.80) X10*6/uL Hgb (14.0-18.0) g/dl Hct (42.0-52.0) % MCV (80.0-98.0) fL MCH (27.0-33.0) pg MCHC (31.0-36.0) g/dl RDW (11.0-16.0) % Plt Count (160-400) X10*3/uL MPV (9.4-12.4) fL Immature Gran % (Auto) (0.0-0.4) % Neut % (Auto) (45-73) % Lymph % (Auto) (20-40) % [place] % (Auto) (2-11) % Eos % (Auto) (0-4) % Baso % (Auto) (0-2) % Lymph # (Auto) (1.2-4.9) X10*3/uL [place] # (Auto) (0.1-1.2) X10*3/uL Eos # (Auto) (0.0-0.4) X10*3/uL Baso # (Auto) (0.0-0.2) X10*3/uL Abs Immat Gran (auto) (0.00-0.03) X10*3/uL Absolute Neuts (auto) (2.0-8.3) x10*3/uL Absolute Nucleated RBC (0.0-0.012) X10*3/uL Nucleated RBC % (auto) (0.0-0.2) /100WBC Sodium (135-145) mmol/L Potassium (3.3-5.1) mmol/L Chloride (96-108) mmol/L Carbon Dioxide (22-29) mmol/L Anion Gap (12-20) BUN (9-16) mg/dL Creatinine (0.5-1.4) mg/dL Estim Creat Clear Calc Estimated GFR Random Glucose (60-115) mg/dL Lactic Acid (0.5-2.0) mmol/L Calcium (8.4-10.2) mg/dL Troponin I High Sens 12.4 (<3.5-35.0) ng/L B-Natriuretic Peptide (<100) pg/mL COVID-19 (JUANA) (Negative) COVID-19 Clin Com <Jameson Fajardo MD - Last Filed: 02/13/22 07:27> Lab Results 02/13/22 02/13/22 02/13/22 Range/Units 06:36 06:36 07:17 WBC 6.1 (4.8-10.8) X10*3/uL RBC 3.75 L (4.60-5.80) X10*6/uL Hgb 11.8 L (14.0-18.0) g/dl Hct 37.1 L (42.0-52.0) % MCV 98.9 H (80.0-98.0) fL MCH 31.5 (27.0-33.0) pg MCHC 31.8 (31.0-36.0) g/dl RDW 14.2 (11.0-16.0) % Plt Count 214 (160-400) X10*3/uL MPV 10.2 (9.4-12.4) fL Immature Gran % (Auto) 0.3 (0.0-0.4) % Neut % (Auto) 83.4 H (45-73) % Lymph % (Auto) 6.9 L (20-40) % [place] % (Auto) 8.8 (2-11) % Eos % (Auto) 0.3 (0-4) % Baso % (Auto) 0.3 (0-2) % Lymph # (Auto) 0.4 L (1.2-4.9) X10*3/uL [place] # (Auto) 0.5 (0.1-1.2) X10*3/uL Eos # (Auto) 0.0 (0.0-0.4) X10*3/uL Baso # (Auto) 0.0 (0.0-0.2) X10*3/uL Abs Immat Gran (auto) 0.02 (0.00-0.03) X10*3/uL Absolute Neuts (auto) 5.1 (2.0-8.3) x10*3/uL Absolute Nucleated RBC 0.000 (0.0-0.012) X10*3/uL Nucleated RBC % (auto) 0.0 (0.0-0.2) /100WBC Sodium 136 (135-145) mmol/L Potassium 4.6 (3.3-5.1) mmol/L Chloride 105 (96-108) mmol/L Carbon Dioxide 26 (22-29) mmol/L Anion Gap 10 L (12-20) BUN 30 H D (9-16) mg/dL Creatinine 0.85 (0.5-1.4) mg/dL Estim Creat Clear Calc 75.1 Estimated GFR > 60 Random Glucose 102 (60-115) mg/dL Lactic Acid (0.5-2.0) mmol/L Calcium 8.3 L (8.4-10.2) mg/dL Troponin I High Sens (<3.5-35.0) ng/L B-Natriuretic Peptide (<100) pg/mL COVID-19 ([facility]UANA) Negative (Negative) COVID-19 Clin Com See Note 03/29/22 03/29/22 03/29/22 Range/Units 07:17 07:17 08:32 WBC (4.8-10.8) X10*3/uL RBC (4.60-5.80) X10*6/uL Hgb (14.0-18.0) g/dl Hct (42.0-52.0) % MCV (80.0-98.0) fL MCH (27.0-33.0) pg MCHC (31.0-36.0) g/dl RDW (11.0-16.0) % Plt Count (160-400) X10*3/uL MPV (9.4-12.4) fL Immature Gran % (Auto) (0.0-0.4) % Neut % (Auto) (45-73) % Lymph % (Auto) (20-40) % [place] % (Auto) (2-11) % Eos % (Auto) (0-4) % Baso % (Auto) (0-2) % Lymph # (Auto) (1.2-4.9) X10*3/uL [place] # (Auto) (0.1-1.2) X10*3/uL Eos # (Auto) (0.0-0.4) X10*3/uL Baso # (Auto) (0.0-0.2) X10*3/uL Abs Immat Gran (auto) (0.00-0.03) X10*3/uL Absolute Neuts (auto) (2.0-8.3) x10*3/uL Absolute Nucleated RBC (0.0-0.012) X10*3/uL Nucleated RBC % (auto) (0.0-0.2) /100WBC Sodium (135-145) mmol/L Potassium (3.3-5.1) mmol/L Chloride (96-108) mmol/L Carbon Dioxide (22-29) mmol/L Anion Gap (12-20) BUN (9-16) mg/dL Creatinine (0.5-1.4) mg/dL Estim Creat Clear Calc Estimated GFR Random Glucose (60-115) mg/dL Lactic Acid 1.8 (0.5-2.0) mmol/L Calcium (8.4-10.2) mg/dL Troponin I High Sens 13.0 (<3.5-35.0) ng/L B-Natriuretic Peptide 285 H (<100) pg/mL COVID-19 (JUANA) (Negative) COVID-19 Clin Com 02/13/22 Range/Units 08:50 WBC (4.8-10.8) X10*3/uL RBC (4.60-5.80) X10*6/uL Hgb (14.0-18.0) g/dl Hct (42.0-52.0) % MCV (80.0-98.0) fL MCH (27.0-33.0) pg MCHC (31.0-36.0) g/dl RDW (11.0-16.0) % Plt Count (160-400) X10*3/uL MPV (9.4-12.4) fL Immature Gran % (Auto) (0.0-0.4) % Neut % (Auto) (45-73) % Lymph % (Auto) (20-40) % [place] % (Auto) (2-11) % Eos % (Auto) (0-4) % Baso % (Auto) (0-2) % Lymph # (Auto) (1.2-4.9) X10*3/uL [place] # (Auto) (0.1-1.2) X10*3/uL Eos # (Auto) (0.0-0.4) X10*3/uL Baso # (Auto) (0.0-0.2) X10*3/uL Abs Immat Gran (auto) (0.00-0.03) X10*3/uL Absolute Neuts (auto) (2.0-8.3) x10*3/uL Absolute Nucleated RBC (0.0-0.012) X10*3/uL Nucleated RBC % (auto) (0.0-0.2) /100WBC Sodium (135-145) mmol/L Potassium (3.3-5.1) mmol/L Chloride (96-108) mmol/L Carbon Dioxide (22-29) mmol/L Anion Gap (12-20) BUN (9-16) mg/dL Creatinine (0.5-1.4) mg/dL Estim Creat Clear Calc Estimated GFR Random Glucose (60-115) mg/dL Lactic Acid (0.5-2.0) mmol/L Calcium (8.4-10.2) mg/dL Troponin I High Sens 12.4 (<3.5-35.0) ng/L B-Natriuretic Peptide (<100) pg/mL COVID-19 ([facility]UANA) (Negative) COVID-19 Clin Com <Fariha Ramsey DO - Last Filed: 02/13/22 09:29> ECG Data Attestation: I personally reviewed and interpreted this ECG as follows: <Jameson Fajardo MD - Last Filed: 02/13/22 07:27> Interpretation: ventricular paced rhythm, rate of 60 <Jameson Fajardo MD - Last Filed: 02/13/22 07:27> Discharge Plan Discharge Clinical Impression: Acute dyspnea, Hypoxia Pulmonary edema Qualifiers: Chronicity: acute Qualified Code(s): J81.0 - Acute pulmonary edema Pneumonia Qualifiers: Pneumonia type: due to unspecified organism Laterality: right Lung location: unspecified part of lung Qualified Code(s): J18.9 - Pneumonia, unspecified organism <Jameson Fajardo MD - Last Filed: 02/13/22 07:27> Patient Disposition: Admitted As Inpatient <Jameson Fajardo MD - Last Filed: 02/13/22 07:27>
--- NOTE | 2022-02-13 05:54 | ECG_ITS ---
Test Reason : sob Blood Pressure : / mmHG Vent. Rate : 060 BPM Atrial Rate : 394 BPM P-R Int : 000 ms QRS Dur : 168 ms QT Int : 504 ms P-R-T Axes : 000 -54 106 degrees QTc Int : 504 ms Ventricular-paced rhythm Underlying rhythm probably atrial fibrillation Abnormal ECG When compared with ECG of 04-JUN-2020 04:44, No significant change was found Referred By: Jameson Fajardo Electronically Signed By:MICHAEL SAMPSON
[2022-02-13] MEDS: Furosemide 40 MG/4 ML VIAL IVPUSH (06:11)
[2022-02-13] MEDS: Nitroglycerin 2 % Oint 1 GM Packet 1 INCH TRANSDERMA (06:11)
[2022-02-13 07:06] LABS: COVID-19 Test Negative (Negative)
[2022-02-13 07:07] LABS: Anion Gap 10 (12-20); Blood Urea Nitrogen 30 mg/dL (9-16); Calcium 8.3 mg/dL (8.4-10.2); Carbon Dioxide 26 mmol/L (22-29); Chloride 105 mmol/L (96-108); Creatinine Clr Calc Pharmacy 75.1; Estimated Glomerular Filt Rate > 60; Glucose Random 102 mg/dL (60-115); Potassium 4.6 mmol/L (3.3-5.1); Sodium 136 mmol/L (135-145)
[2022-02-13 07:21] LABS: MANUAL DIFF FLAG NO
[2022-02-13 07:27] LABS: Basophils Percent Auto 0.3 % (0-2); Eosinophils Percent Auto 0.3 % (0-4); Hematocrit 37.1 % (42.0-52.0); Hemoglobin 11.8 g/dl (14.0-18.0); Imm Gran Abs Auto 0.02 X10*3/uL (0.00-0.03); Imm Gran Pct Auto 0.3 % (0.0-0.4); Lymphocytes Absolute Auto 0.4 X10*3/uL (1.2-4.9); Lymphocytes Percent Auto 6.9 % (20-40); Mean Corpuscular HGB Conc 31.8 g/dl (31.0-36.0); Mean Corpuscular Hemoglobin 31.5 pg (27.0-33.0); Mean Corpuscular Volume 98.9 fL (80.0-98.0); Mean Platelet Volume 10.2 fL (9.4-12.4); Monocytes Absolute Auto 0.5 X10*3/uL (0.1-1.2); Monocytes Percent Auto 8.8 % (2-11); Neutrophils Absolute Auto 5.1 x10*3/uL (2.0-8.3); Neutrophils Percent Auto 83.4 % (45-73); Platelet Count 214 X10*3/uL (160-400); Red Blood Count 3.75 X10*6/uL (4.60-5.80); Red Cell Distribution Width 14.2 % (11.0-16.0); White Blood Count 6.1 X10*3/uL (4.8-10.8)
[2022-02-13 07:44] LABS: B Type Natriuretic Peptide 285 pg/mL (<100)
--- NOTE | 2022-02-13 08:58 | PHA.MEDREC ---
Pharmacy Consult ? Medication Reconciliation Pharmacy has completed the medication reconciliation.
[2022-02-13 09:09] LABS: Lactic Acid 1.8 mmol/L (0.5-2.0)
[2022-02-13 09:20] LABS: Troponin-I High Sensitivity 12.4 ng/L (<3.5-35.0)
[2022-02-13] MEDS: cefTRIAXone sodium 1 GM in 0.9 % Sodium Chloride 50 ML IV (09:30)
--- NOTE | 2022-02-13 09:49 | PC.NURSE ---
pt seen by dr. thompson, pt/family aware of plan of care for admission to hosp. pt has no restrictio on his diet per dr. thompson
--- NOTE | 2022-02-13 09:58 | PM.IMHP ---
History of Present Illness Date of Service: 02/13/22 Chief Complaint: shortness of breath This is an 87 yo M with a PMH of COPD, CVA, HTN, HLD, , A. Fib on Eliquis, s/p PPM, Pulm HTN who presents to the hospital with sudden onset of shortness of breath which began on the evening prior to admission. The patient reports that he has chronic shortness of breath and a chronic cough. Generally, when he feels short of breath, he is able to relax and take a deep breath and catch his breath. However, yesterday he was unable to the do this and his breathing became so severe that he presented to the emergency room. He reports being in his usual state of health prior to this. No chest pain. A chronically productive (white sputum) cough, is unchanged. No fevers or chills. No increasing weakness. + LE edema to the point that he was unable to wear his shoes on the day prior to admission. Upon arrival to the ED, his work up showed an elevated BNP. His cxr showed assymetric pulmonary vascular congestion. He was treated with IV lasix and nitropaste. In light of his CXR findings, he was empirically covered with IV antibiotics. His oxygen saturation decreased to 90% on RA and had increased work of breathing. He will be admitted for further work up and treatment. Review of Systems Review of Systems: negative except HPI [facility] Medical History Bilateral inguinal hernia BPH (benign prostatic hyperplasia) Chronic atrial fibrillation COPD (chronic obstructive pulmonary disease) History of CVA (cerebrovascular accident) Hypercholesterolemia Hypertension Hypothyroid Impaired fasting glucose Non-rheumatic aortic stenosis Normal pressure hydrocephalus Peripheral vascular disease Pulmonary nodule Renal calculi Right femoral fracture Right humeral fracture Family History Father Acute CVA (cerebrovascular accident) Cerebral hemorrhage Mother Acute CVA (cerebrovascular accident) Son Hypertension Sister Lung cancer Brother Alive and well Surgical History Back pain with history of spinal surgery H/O laminectomy History of hip replacement History of inguinal hernia repair History of open reduction and internal fixation (ORIF) procedure History of thyroidectomy, subtotal History of vertebroplasty 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 Status post surgical removal of malignant neoplasm of skin Social History Housing: House Alcohol intake: never Patient Tobacco Use Status: Former Tobacco user Quit Date: 10+ years Tobacco use type: Cigarette e-Cigarette/Vaping Use: Never Used Second Hand Smoke Exposure: No Use of substances other than those prescribed or required for medical reasons: No Advance Directives: No Advance Directives Information Provided: No service: Yes Current occupational status: retired [id number] Allergies Allergy/AdvReac Type Severity Reaction Status Date / Time No Known Allergies Allergy Verified 01/04/22 11:01 Active Medications: Current Medications Acetaminophen (Acetaminophen 325 Mg Tablet) 650 mg PO Q6H PRN PRN Reason: Pain, Mild (Pain Scale 1-3) Ondansetron HCl (Ondansetron Hcl 4 Mg/2 Ml Vial) 4 mg IVPUSH Q8H PRN PRN Reason: Nausea and Vomiting Pharmacy Consult (Consult Rx Perform Med Rec) 1 each MISCELLANE ONCE PRN PRN Reason: Consult order Sodium Chloride (0.9 % Sodium Chloride Flush 3 Ml Syringe) 3 ml IVFLUSH [facility] Medications Medication Instructions Recorded Confirmed Last Taken Type cholecalciferol (vitamin D3) 25 25 mcg PO DAILY 09/27/20 02/13/22 02/12/22 History mcg (1,000 unit) tablet lisinopril 20 mg tablet 20 mg PO DAILY 09/27/20 02/13/22 02/12/22 History metoprolol succinate 50 mg 50 mg PO BEDTIME 09/27/20 02/13/22 02/12/22 History tablet,extended release 24 hr simvastatin 20 mg tablet 20 mg PO BEDTIME 09/27/20 02/13/22 02/12/22 History levothyroxine 200 mcg tablet 200 mcg PO .COMPLEX 05/02/21 02/13/22 02/12/22 History cyanocobalamin (vitamin B-12) 1,000 mcg PO DAILY 02/13/22 02/13/22 02/12/22 History 1,000 mcg tablet Physical Exam Vital Signs and Narrative: Vital Signs: Last Vital Signs Temp 98.0 F 02/13/22 08:51 Pulse 60 02/13/22 09:32 Resp 19 02/13/22 09:32 BP 111/54 L 02/13/22 09:32 Pulse Ox 92 02/13/22 09:32 Oxygen Flow Rate 2 02/13/22 05:55 BMI result Body Mass Index 24.3 Const: Other: Constitutional - Awake and Alert, No apparent distress in sitting position; increased work of breath in supine positioning Eyes - PERRLA, EOMI Cardiovascular - S1S2, RRR, 1-2+ pedal edema; no jvd appreciated; Respiratory - Rales R > L; breathing comfortably while sitting on 2L NC Gastrointestinal - NT / ND; +BS; No rebound or guarding - No CVA tenderness Extremities - no calf tenderness bilaterally Musculoskeletal - Normal inspection, normal ROM Skin - Warm/Dry Neurological - Alert & oriented x3, No focal deficit Psychological - Appropriate affect Results Labs CBC and Chem 7: 02/13/22 07:17 02/13/22 06:36 Labs: Laboratory Results - last 24 hr 02/13/22 02/13/22 02/13/22 06:36 06:36 07:17 MCV 98.9 H MCH 31.5 MCHC 31.8 RDW 14.2 Plt Count 214 MPV 10.2 Immature Gran % (Auto) 0.3 Neut % (Auto) 83.4 H Lymph % (Auto) 6.9 L [place] % (Auto) 8.8 Eos % (Auto) 0.3 Baso % (Auto) 0.3 Lymph # (Auto) 0.4 L [place] # (Auto) 0.5 Eos # (Auto) 0.0 Baso # (Auto) 0.0 Abs Immat Gran (auto) 0.02 Absolute Neuts (auto) 5.1 Absolute Nucleated RBC 0.000 Nucleated RBC % (auto) 0.0 Anion Gap 10 L Estim Creat Clear Calc 75.1 Estimated GFR > 60 Random Glucose 102 Lactic Acid Calcium 8.3 L Troponin I High Sens B-Natriuretic Peptide COVID-19 (JUANA) Negative COVID-19 Clin Com See Note 02/13/22 02/13/22 02/13/22 07:17 07:17 08:32 MCV MCH MCHC RDW Plt Count MPV Immature Gran % (Auto) Neut % (Auto) Lymph % (Auto) [place] % (Auto) Eos % (Auto) Baso % (Auto) Lymph # (Auto) [place] # (Auto) Eos # (Auto) Baso # (Auto) Abs Immat Gran (auto) Absolute Neuts (auto) Absolute Nucleated RBC Nucleated RBC % (auto) Anion Gap Estim Creat Clear Calc Estimated GFR Random Glucose Lactic Acid 1.8 Calcium Troponin I High Sens 13.0 B-Natriuretic Peptide 285 H COVID-19 (JUANA) COVID-19 Clin Com 02/13/22 08:50 MCV MCH MCHC RDW Plt Count MPV Immature Gran % (Auto) Neut % (Auto) Lymph % (Auto) [place] % (Auto) Eos % (Auto) Baso % (Auto) Lymph # (Auto) [place] # (Auto) Eos # (Auto) Baso # (Auto) Abs Immat Gran (auto) Absolute Neuts (auto) Absolute Nucleated RBC Nucleated RBC % (auto) Anion Gap Estim Creat Clear Calc Estimated GFR Random Glucose Lactic Acid Calcium Troponin I High Sens 12.4 B-Natriuretic Peptide COVID-19 (JUANA) COVID-19 Clin Com Imaging Radiologist's Impressions: Impressions Chest X-Ray 02/13/22 06:52 IMPRESSION: * Cardiomegaly and pulmonary venous congestion with interstitial edema * Multifocal airspace opacity throughout the right lung suspicious for pneumonia versus asymmetric pulmonary edema. Assessment and Plan (1) Acute on chronic HFrEF (heart failure with reduced ejection fraction): Status: Acute Plan This is an 87 yo M with a PMH of COPD, CVA, HTN, HLD, , A. Fib on Eliquis, s/p PPM, Pulm HTN who presents to the hospital with sudden onset of shortness of breath which began on the evening prior to admission. He will be admitted for further work up. 1. Acute on Chronic HFpEF -- due to severe 1a. Severe aortic stenosis received IV Lasix in the ED with 4+ L urine output hold off on further diuretics today, re-eval tomorrow and start IV Lasix then continue with supplemental oxygen 2L (no respiratory failure evident at this time) Cardiology consult 2. Possible Pneumonia asymmetric opacities on the CXR raise the suspicion of pneumonia -- clinically likely more related to CHF nonetheless, will continue empiric antibiotics check procalcitonin patients low blood pressures are secondary to medications and NOT severe sepsis 3. PAF paced rhythm currently continue Eliquis, metoprolol tonight if BP allows 4. HTN BP on the softer side metoprolol this evening if bp allows; hold lisinopril 5. HLD statin 6. Hypothyroidism synthroid DVT pptx, Ambikarobertosevero Full Code Reports his son Luan as HCP and primary medicare contact specialist. In light of the patients acute CHF exacerbation (with known ) + possibility of underlying pneumonia -- I anticipate a medically necessary inpatient hospitalization spanning at least 2 midnights. He will require further work up, treatment and monitoring of response for the previously mentioned conditions. This cannot completed in a less acute setting. Quality Stroke Does the patient have a stroke diagnosis?: No VTE Prior VTE?: No VTE Risk Level:: Medical - moderate - high VTE Device Contraindication: Treatment Not Indicated VTE Drug Contraindication: N/A - Med Ordered
[2022-02-13 10:00] LABS: Procalcitonin 0.03 ng/mL
[2022-02-13] MEDS: 0.9 % Sodium Chloride 500 ML IV (10:15)
[2022-02-13] MEDS: Azithromycin 500 MG in 0.9 % Sodium Chloride 250 ML 125 MG IV (10:46)
--- NOTE | 2022-02-13 11:17 | PC.NURSE ---
VSS 70/36 PT IS ASYMPTOMATIC NO CHANGE IN MENTATION. GIVEN NS 250 BOLUS VS 82/36 NO CHANGE IN MENTATION GIVEN 2ND BOLUS OF NS 250ML. VSS AFTER 2ND BOLUS 92/34-[address] ELLER AWARE
[2022-02-13] MEDS: Apixaban 5 MG TABLET PO (12:21)
[2022-02-13] MEDS: Levothyroxine Sodium 200 MCG TABLET PO (12:21)
[2022-02-13] MEDS: 0.9 % Sodium Chloride 500 ML 50 ML IV (14:26)
--- NOTE | 2022-02-13 15:40 | PM.EVENT ---
Event Note Date of Service: 02/13/22 Event Note: Informed by the ED team of the patients low blood pressures -- dropping into the 70s on automated cuff. Patient seen and examined bedside. He is completely awake and alert. He has just completed his lunch. He denies any symptoms of hyoptension. On exam: Gen- awake and alert CVS - S1S2; rates in the 60s, palpable radial pulses Lungs - no respiratory distress Neuro:AAOX3; conversing freely without distress skin - perfusing well, including extremities which are warm with normal skin color A/P Suspect BP readings are inaccurate as clinically the patient is not in shock repeated manually with BPs in the 80s systolic. finish 500 cc NS and add 1 dose of IV albumin hold all diuretics and anithypertensives at this time
--- NOTE | 2022-02-13 16:02 | P.CONCA_ITS ---
History of Present Illness History of Present Illness Date of Service: 02/13/22 Chief complaint: SoB Narrative: This is a cardiology consultation regarding congestive heart failure as well as severe aortic stenosis. Patient is 70 followed by as in the office for aortic stenosis, atrial fibrillation, hypertension and his pacemaker. In the recent visit few weeks ago he mentioned that he was beginning to notice shortness of breath. Subsequently, he underwent cardiac catheterization in anticipation of TAVR. That showed no significant CAD. Last evening apparently could not breathe at all and it became very profound and that led to ER visit. He also had some leg swelling as well. He could not apparently back issues on the day prior to admission. He is being treated for pulmonary edema. There is also question of possible pneumonia and hence he is also on empiric antibiotics. No anginal-type symptoms. Review of Systems Review of Systems: Yes all other systems are reviewed and are negative Constitutional: Constitutional: Reports as per HPI Eyes: Eyes: Reports as per HPI ENT: Reports as per HPI Cardiovascular: Cardiovascular: Reports as per HPI, Denies acrocyanosis, Denies cool extremities, Denies chest pain, Reports leg edema, Denies lightheadedness, Denies palpitations and Reports dyspnea Respiratory: Respiratory: Reports as per HPI, Reports no additional respiratory complaints and Reports dyspnea Gastrointestinal: Gastrointestinal: Reports as per HPI and Reports no additional gastrointestinal complaints Genitourinary: Genitourinary: Reports no additional male genitourinary complaints and Reports as per HPI Musculoskeletal: Musculoskeletal: Reports no additional musculoskeletal complaints and Reports as per HPI Integumentary/Breasts: Skin/Breast: Reports system reviewed and no additional complaints, except as docu Neurologic: Reports system reviewed and no additional complaints, except as documented and Reports as per HPI Psychiatric: Psychiatric: Reports no additional psychiatric complaints and Reports as per HPI Endocrine: Endocrine: Reports no additional endocrine complaints, Reports as per HPI and Denies palpitations Hematologic/Lymphatic: Hematologic/Lymphatic: Reports no additional hematologic/lymphatic complaints and Reports as per HPI Allergic/Immunologic: Allergic/Immunologic: Reports no additional allergic/immunologic complaints and Reports as per HPI [facility] Past Medical History Medical History Bilateral inguinal hernia BPH (benign prostatic hyperplasia) Chronic atrial fibrillation COPD (chronic obstructive pulmonary disease) History of CVA (cerebrovascular accident) Hypercholesterolemia Hypertension Hypothyroid Impaired fasting glucose Non-rheumatic aortic stenosis Normal pressure hydrocephalus Peripheral vascular disease Pulmonary nodule Renal calculi Right femoral fracture Right humeral fracture Family History Family History Father Acute CVA (cerebrovascular accident) Cerebral hemorrhage Mother Acute CVA (cerebrovascular accident) Son Hypertension Sister Lung cancer Brother Alive and well Surgical History Surgical History Back pain with history of spinal surgery H/O laminectomy History of hip replacement History of inguinal hernia repair History of open reduction and internal fixation (ORIF) procedure History of thyroidectomy, subtotal History of vertebroplasty 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 Status post surgical removal of malignant neoplasm of skin Social History Social History Housing: House Alcohol intake: never Patient Tobacco Use Status: Former Tobacco user Quit Date: 10+ years Tobacco use type: Cigarette e-Cigarette/Vaping Use: Never Used Second Hand Smoke Exposure: No Use of substances other than those prescribed or required for medical reasons: No Advance Directives: No Advance Directives Information Provided: No service: Yes Current occupational status: [employer] Allergies Allergy/AdvReac Type Severity Reaction Status Date / Time No Known Allergies Allergy Verified 01/04/22 11:01 Active Medications: Current Medications Acetaminophen (Acetaminophen 325 Mg Tablet) 650 mg PO Q6H PRN PRN Reason: Pain, Mild (Pain Scale 1-3) Albuterol Sulfate (Albuterol Sulfate 90 Mcg 8 Gm Inhaler) 2 puff INHALE Q4H PRN PRN Reason: bronchospasm Apixaban (Apixaban 5 Mg Tablet) 5 mg PO BID [facility] Last Admin: 02/13/22 12:21 Dose: 5 mg Documented by: Atorvastatin Calcium (Atorvastatin Calcium 10 Mg Tablet) 10 mg PO BEDTIME [facility] Cyanocobalamin (Cyanocobalamin (Vitamin B-12) 1,000 Mcg Tablet) 1,000 mcg PO DAILY [facility] Docusate Sodium (Docusate Sodium 100 Mg Capsule) 100 mg PO BID PRN PRN Reason: Constipation Sodium Chloride (Ns) 500 mls @ 50 mls/hr IV .Q10H JAYY Stop: 02/14/22 00:14 Last Admin: 02/13/22 14:26 Dose: 50 mls/hr Documented by: Albumin Human (Kedbumin 25 %) 100 mls @ 100 mls/hr IV Q1H [facility] Stop: 02/13/22 16:44 Levothyroxine Sodium (Levothyroxine Sodium 200 Mcg Tablet) 200 mcg PO DAILY [facility] Last Admin: 02/13/22 12:21 Dose: 200 mcg Documented by: Ondansetron HCl (Ondansetron Hcl 4 Mg/2 Ml Vial) 4 mg IVPUSH Q8H PRN PRN Reason: Nausea and Vomiting Pharmacy Consult (Consult Rx Perform Med Rec) 1 each MISCELLANE ONCE PRN PRN Reason: Consult order Senna (Sennosides 8.6 Mg Tablet) 8.6 mg PO BID PRN PRN Reason: Constipation Sodium Chloride (0.9 % Sodium Chloride Flush 3 Ml Syringe) 3 ml IVFLUSH QSHIFT [facility] Vitamin D (Cholecalciferol (Vitamin D3) 25 Mcg Tablet) 25 mcg PO DAILY [facility] Home Medications Medication Instructions Recorded Confirmed Last Taken Type cholecalciferol (vitamin D3) 25 25 mcg PO DAILY 09/27/20 02/13/22 02/12/22 History mcg (1,000 unit) tablet lisinopril 20 mg tablet 20 mg PO DAILY 09/27/20 02/13/22 02/12/22 History metoprolol succinate 50 mg 50 mg PO BEDTIME 09/27/20 02/13/22 02/12/22 History tablet,extended release 24 hr simvastatin 20 mg tablet 20 mg PO BEDTIME 09/27/20 02/13/22 02/12/22 History levothyroxine 200 mcg tablet 200 mcg PO .COMPLEX 05/02/21 02/13/22 02/12/22 History cyanocobalamin (vitamin B-12) 1,000 mcg PO DAILY 02/13/22 02/13/22 02/12/22 History 1,000 mcg tablet Physical Exam Vital Signs: Vital Signs: Last Vital Signs Temp 97.8 F 02/13/22 13:26 Pulse 60 02/13/22 14:03 Resp 20 02/13/22 14:03 BP 89/47 L 02/13/22 14:03 Pulse Ox 96 02/13/22 14:03 Oxygen Flow Rate 2 02/13/22 05:55 BMI result Body Mass Index 24.3 Const: General: comfortable HEENT: Other: Unremarkable Head: Yes normal to inspection Neck: Neck: Yes normal visual inspection Chest: Chest palpation & inspection: normal inspection of the chest Resp: Auscultation: clear to auscultation bilaterally Cardio: Palpation: normal PMI Heart sounds: S1 normal heart sound present, S2 normal heart sound present (Very soft and barely audible), no gallops, Murmur heart sound present systolic early and III/ and no rubs GI: Palpation (GI): Soft to palpation Back/Spine/Pelvis: Other: unremarkable Skin: General skin exam: no rashes or lesions noted Neuro: Cognition (Neuro): normal cognition Extrem: General: Yes normal to inspection and Yes pedal edema (1+ bilateral) Psych: Mental Status: mental status grossly normal Objective Labs and Meds Result diagrams: 02/13/22 07:17 02/13/22 06:36 Lab results: Laboratory Results - last 24 hr 02/13/22 02/13/22 02/13/22 06:36 06:36 06:36 WBC RBC Hgb Hct MCV MCH MCHC RDW Plt Count MPV Immature Gran % (Auto) Neut % (Auto) Lymph % (Auto) [place] % (Auto) Eos % (Auto) Baso % (Auto) Lymph # (Auto) [place] # (Auto) Eos # (Auto) Baso # (Auto) Abs Immat Gran (auto) Absolute Neuts (auto) Absolute Nucleated RBC Nucleated RBC % (auto) Sodium 136 Potassium 4.6 Chloride 105 Carbon Dioxide 26 Anion Gap 10 L BUN 30 H D Creatinine 0.85 Estim Creat Clear Calc 75.1 Estimated GFR > 60 Random Glucose 102 Lactic Acid Calcium 8.3 L Troponin I High Sens B-Natriuretic Peptide Procalcitonin 0.03 COVID-19 (JUANA) Negative COVID-19 Clin Com See Note 02/13/22 02/13/22 02/13/22 07:17 07:17 07:17 WBC 6.1 RBC 3.75 L Hgb 11.8 L Hct 37.1 L MCV 98.9 H MCH 31.5 MCHC 31.8 RDW 14.2 Plt Count 214 MPV 10.2 Immature Gran % (Auto) 0.3 Neut % (Auto) 83.4 H Lymph % (Auto) 6.9 L [place] % (Auto) 8.8 Eos % (Auto) 0.3 Baso % (Auto) 0.3 Lymph # (Auto) 0.4 L [place] # (Auto) 0.5 Eos # (Auto) 0.0 Baso # (Auto) 0.0 Abs Immat Gran (auto) 0.02 Absolute Neuts (auto) 5.1 Absolute Nucleated RBC 0.000 Nucleated RBC % (auto) 0.0 Sodium Potassium Chloride Carbon Dioxide Anion Gap BUN Creatinine Estim Creat Clear Calc Estimated GFR Random Glucose Lactic Acid Calcium Troponin I High Sens 13.0 B-Natriuretic Peptide 285 H Procalcitonin COVID-19 (JUANA) COVID-19 Clin Com 02/13/22 02/13/22 08:32 08:50 WBC RBC Hgb Hct MCV MCH MCHC RDW Plt Count MPV Immature Gran % (Auto) Neut % (Auto) Lymph % (Auto) [place] % (Auto) Eos % (Auto) Baso % (Auto) Lymph # (Auto) [place] # (Auto) Eos # (Auto) Baso # (Auto) Abs Immat Gran (auto) Absolute Neuts (auto) Absolute Nucleated RBC Nucleated RBC % (auto) Sodium Potassium Chloride Carbon Dioxide Anion Gap BUN Creatinine Estim Creat Clear Calc Estimated GFR Random Glucose Lactic Acid 1.8 Calcium Troponin I High Sens 12.4 B-Natriuretic Peptide Procalcitonin COVID-19 (JUANA) COVID-19 Clin Com ECG Interpretation: EKG shows ventricular paced rhythm at 60/Min; underlying atrial fibrillation. Imaging Radiologist's impression: Impressions Chest X-Ray 02/13/22 06:52 IMPRESSION: * Cardiomegaly and pulmonary venous congestion with interstitial edema * Multifocal airspace opacity throughout the right lung suspicious for pneumonia versus asymmetric pulmonary edema. Assessment and Plan (1) Acute diastolic (congestive) heart failure: Status: Acute (2) Non-rheumatic aortic stenosis: Status: Acute (3) Persistent atrial fibrillation: Status: Inactive (4) Arterial hypotension: Status: Acute Plan Pertinent data reviewed. In the recent echocardiogram, LVEF 60-65%. Mean gradient across aortic valve was 53 mm Hg; peak 90 mmHg and calculated valve area was 0.73 sq cm. There was mild aortic regurgitation. There is also severe mitral annular calcification with moderate mitral regurgitation. In the cardiac catheterization last week, there is only mild disease in the left main but otherwise minimal irregularities. In the current visit, high sensitivity troponins are within normal limits. Cardiac BNP slightly high 285. Creatinine is 0.85. Chest x-ray reported to have cardiomegaly/pulmonary venous congestion/interstitial edema; multifocal airspace opacity throughout the right lung suspicious for pneumonia versus asymmetric pulmonary edema. Overall, shortness of breath likely cardiac in etiology due to severe aortic stenosis. Doubt if he truly has pneumonia. His blood pressure is quite low in the 70s/80s systolic but he has clinically no symptoms like dizziness or presyncope. Could be related to administration of diuretics as well as nitroglycerin paste with underlying . The nitroglycerin paste is already been removed. Otherwise, we will also stop any fluids. The blood pressure hopefully should improve by itself. We can hold off on the home blood pressure medications including lisinopril and beta-blockers till blood pressure issue resolved. With regard to atrial fibrillation, he is on anticoagulation with Eliquis. Continue. With regard to beta-blockers, hold till the blood pressure improves. Will discuss with [facility] for potentially transfer and inpatient TAVR eval. Procedures Date of Service Date of Service: 02/13/22
--- NOTE | 2022-02-13 16:35 | PC.NURSE ---
pt accepted to [facility] 5 room 103 nurse - nurse [phone]
--- NOTE | 2022-02-13 16:38 | P.DS_ITS ---
DS: Providers Provider Date of Service: 02/13/22 Date of admission: 02/13/22 09:52 Primary care physician: Roby Jacques MD Consults: 02/13/22 09:56 Consult to Cardiology Routine Consulting Provider: Adrian Hobbs Reason for consultation: known , ? CHF secondary to this DS: Diagnosis Discharge Diagnosis (1) Acute diastolic (congestive) heart failure: Status: Acute (2) Non-rheumatic aortic stenosis: Status: Acute (3) Persistent atrial fibrillation: Status: Inactive (4) Arterial hypotension: Status: Acute DS: Summary Hospital Course Hospital Course: From the admission H&P: This is an 87 yo M with a PMH of COPD, CVA, HTN, HLD, , A. Fib on Eliquis, s/p PPM, Pulm HTN who presents to the hospital with sudden onset of shortness of breath which began on the evening prior to admission. The patient reports that he has chronic shortness of breath and a chronic cough. Generally, when he feels short of breath, he is able to relax and take a deep breath and catch his breath. However, yesterday he was unable to the do this and his breathing became so severe that he presented to the emergency room. He reports being in his usual state of health prior to this. No chest pain. A chronically productive (white sputum) cough, is unchanged. No fevers or chills. No increasing weakness. + LE edema to the point that he was unable to wear his shoes on the day prior to admission. Upon arrival to the ED, his work up showed an elevated BNP. His cxr showed ass ymetric pulmonary vascular congestion. He was treated with IV lasix and nitropaste. In light of his CXR findings, he was empirically covered with IV antibiotics. His oxygen saturation decreased to 90% on RA and had increased work of breathing. He will be admitted for further work up and treatment. Hospital Course: Patient was given IV lasix 40mg and Nitropaste (removed within 2 hours) in the ED for his cardiac symptoms. His CXR was concerning for possible pneumonia on the R side for which he was given an empiric dose of Rocephin/zithromax. His procalcitonin is low, he has no leukocytosis and he is afebrile. Unlikely that he has pneumonia. Patients blood pressure decreased to the 80s systolic but he remained asymptomatic. He was givne 500 cc of IVF as he had already putout >4L with a single dose of IV lasix. The patient was evaluated by cardiology who recommended (and arranged) for transfer to [facility] [place] for [place] TAVR. He has been continued on his Eliquis and his antihypertensives have been held. The patient has been informed of and agreed to the transfer. His health care proxy and son (Luan) has been informed of the transfer as well. Dishcarge Diagnosis 1. Acute HFpEF secondary to known severe - transfer to [facility] 2. Pneumonia, cannot be definitively ruled out, but unlikely - 1 dose of Empiric IV antibiotics given in the ED 3. Hypotension -- asymptomatic and due to medications 4. Persistent A. Fib -- continued on eliquis, metoprolol held due to low bp 5. HTN -- bp meds on hold as above other chronic issues stable in the hospital Time Spent with Patient Time attestation: Total time spent providing and/or coordinating discharge services: Discharge coordination time: Greater than 30 minutes Quality: Stroke Does the patient have a stroke diagnosis?: No Physical Exam Vital Signs: Vital Signs: Last Vital Signs Temp 97.8 F 02/13/22 13:26 Pulse 60 02/13/22 14:03 Resp 20 02/13/22 14:03 BP 89/47 L 02/13/22 14:03 Pulse Ox 96 02/13/22 14:03 Oxygen Flow Rate 2 02/13/22 05:55 BMI result Body Mass Index 24.3 Const: Other: General - no acute distress, appears comfortable Cardiovascular - regular rate and rhythm, S1-S2; +1 pedal edema Lungs - dim sounds R > L; Abdomen - soft, nontender, no rebound or guarding Extremities - no edema bilaterally Neuro - awake and alert, no focal deficits DS: Data Data Completed and Pending Labs on day of discharge: Laboratory Results - last 24 hr 02/13/22 02/13/22 02/13/22 06:36 06:36 06:36 WBC RBC Hgb Hct MCV MCH MCHC RDW Plt Count MPV Immature Gran % (Auto) Neut % (Auto) Lymph % (Auto) [place] % (Auto) Eos % (Auto) Baso % (Auto) Lymph # (Auto) [place] # (Auto) Eos # (Auto) Baso # (Auto) Abs Immat Gran (auto) Absolute Neuts (auto) Absolute Nucleated RBC Nucleated RBC % (auto) Sodium 136 Potassium 4.6 Chloride 105 Carbon Dioxide 26 Anion Gap 10 L BUN 30 H D Creatinine 0.85 Estim Creat Clear Calc 75.1 Estimated GFR > 60 Random Glucose 102 Lactic Acid Calcium 8.3 L Troponin I High Sens B-Natriuretic Peptide Procalcitonin 0.03 COVID-19 (JUANA) Negative COVID-19 Clin Com See Note 02/13/22 02/13/22 02/13/22 07:17 07:17 07:17 WBC 6.1 RBC 3.75 L Hgb 11.8 L Hct 37.1 L MCV 98.9 H MCH 31.5 MCHC 31.8 RDW 14.2 Plt Count 214 MPV 10.2 Immature Gran % (Auto) 0.3 Neut % (Auto) 83.4 H Lymph % (Auto) 6.9 L [place] % (Auto) 8.8 Eos % (Auto) 0.3 Baso % (Auto) 0.3 Lymph # (Auto) 0.4 L [place] # (Auto) 0.5 Eos # (Auto) 0.0 Baso # (Auto) 0.0 Abs Immat Gran (auto) 0.02 Absolute Neuts (auto) 5.1 Absolute Nucleated RBC 0.000 Nucleated RBC % (auto) 0.0 Sodium Potassium Chloride Carbon Dioxide Anion Gap BUN Creatinine Estim Creat Clear Calc Estimated GFR Random Glucose Lactic Acid Calcium Troponin I High Sens 13.0 B-Natriuretic Peptide 285 H Procalcitonin COVID-19 (JUANA) COVID-19 Clin Com 02/13/22 02/13/22 08:32 08:50 WBC RBC Hgb Hct MCV MCH MCHC RDW Plt Count MPV Immature Gran % (Auto) Neut % (Auto) Lymph % (Auto) [place] % (Auto) Eos % (Auto) Baso % (Auto) Lymph # (Auto) [place] # (Auto) Eos # (Auto) Baso # (Auto) Abs Immat Gran (auto) Absolute Neuts (auto) Absolute Nucleated RBC Nucleated RBC % (auto) Sodium Potassium Chloride Carbon Dioxide Anion Gap BUN Creatinine Estim Creat Clear Calc Estimated GFR Random Glucose Lactic Acid 1.8 Calcium Troponin I High Sens 12.4 B-Natriuretic Peptide Procalcitonin COVID-19 (JUANA) COVID-19 Clin Com Discharge Plan Discharge Patient Disposition: Xfer Acute Care Hospital Discharge Diagnosis: Acute HFpEF, Aortic Stenosis Referrals: Po,Roby Boyd MD [Primary Care Provider] - 1 Week Discharge Medications: Continued levothyroxine 200 mcg tablet 200 mcg PO .COMPLEX 0RF Rx Instructions: 200 mcg PO Take once a day except for Saturday; cyanocobalamin (vitamin B-12) 1,000 mcg Tablet 1,000 mcg PO DAILY 0RF simvastatin 20 mg tablet 20 mg PO BEDTIME 0RF cholecalciferol (vitamin D3) 25 mcg (1,000 unit) tablet 25 mcg PO DAILY 0RF albuterol sulfate 90 mcg/actuation HFA aerosol inhaler 2 puff PO Q4H PRN (Reason: bronchospasm) Qty: 8.5 0RF Senna Plus 8.6-50 mg capsule 1 tab-cap PO BID PRN (Reason: constipation) 90 Days Qty: 90 2RF Eliquis 5 mg tablet 5 mg PO BID Qty: 180 3RF Held lisinopril 20 mg tablet 20 mg PO DAILY 0RF Hold Instructions: Resume on 02/20/22. Resume pending instructions from [facility] doctors metoprolol succinate 50 mg tablet extended release 24 hr 50 mg PO BEDTIME 0RF Hold Instructions: Resume on 02/20/22. Resume pending instructions from [facility] doctors Discharge Orders: Discharge Order (Routine); Ordered 02/13/22 Ordered By: Sage Wallace Diet: low salt diet Activity on Discharge: As tolerated Stand Alone Forms: Patient Portal Discharge page Care Plan Goals: To [facility] [place] evaluation for possible TAVR Health Concerns: CHF, aortic stenosis Plan of Treatment: Transfer to [facility] Assessment: see d/c summary
== END 2022-02-13 20:09 | disposition short-term general hospital (02) | DRG 291 ==
LOC: HO.ED 07:55 → HO.EDOVER 10:12
PROVIDERS: Emergency Medicine; Admitting Provider Family Medicine; Emergency Provider Emergency Medicine; PCP Internal Medicine; Visit Provider Nurse Practitioner Acute Care
DX: I11.0 Hypertensive heart disease with heart failure (principal); I50.23 Acute on chronic systolic (congestive) heart failure; J18.9 Pneumonia, unspecified organism; I48.20 Chronic atrial fibrillation, unspecified; I48.19 Other persistent atrial fibrillation; I95.9 Hypotension, unspecified; I35.0 Nonrheumatic aortic (valve) stenosis; I95.2 Hypotension due to drugs; N40.0 Benign prostatic hyperplasia without lower urinary tract symptoms; E03.9 Hypothyroidism, unspecified; Z20.822 Contact with and (suspected) exposure to COVID-19; Z87.442 Personal history of urinary calculi; Z79.01 Long term (current) use of anticoagulants; Z79.890 Hormone replacement therapy; Z79.899 Other long term (current) drug therapy
CPT/HCPCS: 36415; 71045; 80048; 83605; 83880; 84145; 84484; 85025; 87040; 87635; 93005; 99285; J0456; J0696; J1940